=== PATIENT | male | born 1950 | race American Indian/Alaskan Native ===

== ENCOUNTER 2017-10-29 10:02 | Day surgery (SDC) | payer OTHER, MEDICARE ==
[~2017-10-29 10:02] MED LIST: WATER FOR IRRIG STERILE IR ONE; XYLOCAINE MPF 2% ONE
--- NOTE | 2017-10-29 10:05 | Short Stay Summary ---
Short Stay Documentation Date of service: 10/29/17 Narrative H&P: 67 year old with diagnosis of cirrhosis presenting for EGD to assess for varices. - History Principal diagnosis: cirrhosis rule out varices H&P: obtained from office Past Medical History: anemia, cancer (prostate, suspected renal cell carcinoma, LLL lung mass), hypertension, liver disease (alcoholic cirrhosis), other (colon polyps, post-irradiation rectal ulcer with hemorrhage) Past Surgical History: Other (prostate, hemorrhoids) Social history: smoking, alcohol abuse - Allergies and Medications Current Medications: Allergies No Known Allergies Allergy (Verified 08/08/14 03:56) Home Medications Medication Instructions Recorded Confirmed Last Taken Type Atenolol [Tenormin] 25 mg PO DAILY 08/08/14 08/08/14 08/07/14 History Folic Acid [Folvite] 1 mg PO DAILY 08/08/14 08/08/14 08/07/14 History Gemfibrozil [Lopid] 600 mg PO BID 08/08/14 08/08/14 08/07/14 History Omeprazole [PriLOSEC] 40 mg PO DAILY 08/08/14 08/08/14 08/07/14 History Sertraline [Zoloft] 100 mg PO DAILY 08/08/14 08/08/14 08/07/14 History Thiamine [Vitamin B-1] 100 mg PO DAILY 08/08/14 08/08/14 08/07/14 History amLODIPine [Norvasc] 10 mg PO DAILY 08/08/14 08/08/14 08/07/14 History - Hospital course Hospital course: Uneventful EGD with biopsy. - Disposition Condition at discharge: Good Disposition: [id number] TO HOME OR SELFCARE - Discharge Diagnoses (1) Alcoholic cirrhosis Status: Acute (2) Esophageal varices in alcoholic cirrhosis Status: Acute (3) Portal hypertensive gastropathy Status: Acute (4) Duodenitis Status: Acute Short Stay Discharge Plan Activity: other (no driving today) Diet: other (may resume usual diet) Additional Instructions: Patient to call for biopsy results in 2 weeks if we have not contacted him by then. Continue propranolol. Continue omeprazole. Strong recommendation to stop using all alcoholic beverages. Office follow up in 3 months. Follow up with: IFTIKHAR ARANDA MD [Primary Care Provider] - 7 Days
--- NOTE | 2017-10-29 10:35 | Anesthesia Consultation ---
Anesthesia Consult and Med Hx Date of service: 10/29/17 - Airway Anesthetic Teeth Evaluation: Dentures (upper), Partials (lower) ROM Head & Neck: Adequate Mental/Hyoid Distance: Adequate Mallampati Class: Class II - Pre-Operative Health Status ASA Pre-Surgery Classification: ASA3 Proposed Anesthetic Plan: MAC - Pulmonary Hx Smoking: Yes (1/2 p/day x 35 years) Hx Asthma: No COPD: No Hx Pneumonia: No (LLL lung mass) - Cardiovascular System Hx Hypertension: Yes Hx Angina: No (high cholesterol) - Central Nervous System Hx Psychiatric Problems: No - Endocrine Hx End Stage Renal Disease: No Hx Cirrhosis: Yes Hx Liver Disease: Yes (enlarged liver) - Hematic Hx Anemia: Yes - Other Systems Hx Alcohol Use: Yes (alcoholic cirrosis) Hx Cancer: Yes (prostate CA, suspested renal cell carcinoma, LLL lung mass)
--- NOTE | 2017-10-29 10:35 | Anesthesia Day of Surgery ---
Anesthesia Day of Surgery - Day of Surgery Patient Examined: Yes Patient H&P Reviewed: Yes Patient is NPO: Yes Beta Blockers: Yes
[2017-10-29] MEDS ORDERED: DIPRIVAN 10 MG/ML IV ONE ×2 (10:45→10:49)
[2017-10-29] MEDS ORDERED: NACL 0.9% 1000 ML 1,000 ML IV SCH (11:00)
--- NOTE | 2017-10-29 11:11 | Operative Report ---
Operative Report Operative Report: Date of procedure: 10/29/2017 Preprocedure diagnosis: Cirrhosis, rule out varices Post procedure diagnosis: Small caliber esophageal varices, portal hypertensive gastropathy, erosive duodenitis Procedure name(s): Esophagogastroduodenoscopy with biopsy Surgeon: Bruce Keene MD Anesthesia: Monitored anesthesia care EBL: Less than 1 mL Procedure: The indications, techniques, potential complications and alternatives , had been discussed in full detail prior to the date of the exam, and once again on the day of the exam. Questions were encouraged and answered, and consent was thereby obtained. The patient was placed in the left lateral decubitus position, and was medicated by anesthesia services. See the anesthesia records for details. The tip of a Power [employer]ure video panendoscope was passed easily through the pharynx and into the esophagus. Esophageal veins were prominent, consistent with minimal esophageal varices which essentially flattened upon air insufflation. There were no stigmata of bleeding. The endoscope was advanced into the stomach and air was insufflated. The stomach distended well. The pylorus was patent and there was no retained gastric content. There were mucosal changes consistent with portal hypertensive gastropathy but no stigmata of bleeding. The instrument was advanced into the third portion of the duodenum. Erosive duodenitis was present in the bulb and in the immediate post bulbar duodenum but no kaitlyn ulceration or stigmata of bleeding. The instrument was withdrawn back into the stomach and retroflexed. No additional pathology was seen involving the lesser curvature, fundus or cardia. A single biopsy was obtained from the antrum for Helicobacter pylori. There was no significant bleeding. The endoscope was then withdrawn, with careful repeat examination of the stomach , esophagogastric junction and entire length of the esophagus. There were no additional findings. The procedure was very well tolerated. As then monitored in the recovery area of the GI lab to ensure stability prior to was release. See the outpatient record for details regarding instructions to patient, medications and plans for follow-up. Final diagnosis: 1. Erosive duodenitis 2. Portal hypertensive gastropathy 3. Minimal caliber esophageal varices, banding not required Bruce Keene M.D. Dictated 10/29/2017 at 11:07 AM
[2017-10-29 11:42] VITALS: BP 120/69
--- NOTE | 2017-10-29 14:10 | Post Anesthesia Evaluation ---
- Post Anesthesia Evaluation Patient Participated: Yes Airway Patent: Yes Stable Respiratory Function: Yes Nausea/Vomiting: No Temp > 96.8F: Yes Pain Manageable: Yes Adequeate Hydration: Yes Anesthesia Complications: No
== END 2017-10-29 11:45 | disposition home or self-care (01) ==
LOC: GIO 10:02
PROVIDERS: ATTEND Internal Medicine Gastroenterology
DX: I85.00 Esophageal varices without bleeding (principal); K70.30 Alcoholic cirrhosis of liver without ascites; K76.6 Portal hypertension; K31.89 Other diseases of stomach and duodenum; K29.80 Duodenitis without bleeding; I10 Essential (primary) hypertension; E78.00 Pure hypercholesterolemia, unspecified; F17.200 Nicotine dependence, unspecified, uncomplicated; Z86.010 Personal history of colon polyps; Z85.46 Personal history of malignant neoplasm of prostate
CPT/HCPCS: 43239; 88305; 88342; J2704

== ENCOUNTER 2019-01-12 22:13 | Inpatient (IN) | payer MEDICARE, OTHER ==
[2019-01-12 23:13] LABS: INR 1.46 (0.87-1.13)
[2019-01-12 23:14] LABS: Partial Thromboplastin Time 41.2 Sec. (24.2-36.6)
--- NOTE | 2019-01-12 23:17 | Emergency Department Report ---
ED GI Bleed HPI - General Chief complaint: GI Bleed Stated complaint: RECTAL BLEEDING Time Seen by Provider: 01/12/19 22:40 Source: patient, EMS Mode of arrival: Stretcher Limitations: Physical Limitation - History of Present Illness Initial comments: 68-year-old male with hx of alcoholic cirrhosis presents to ED with complaint of rectal bleeding 3 days. Patient reports bright red blood per rectum. Denies abdominal pain, nausea, vomiting. Patient states this has happened before and he has required blood transfusions in the past. Patient reports tobacco and alcohol use. States his alcohol use is daily, usually consists of an "extra large" six-pack of beer daily. MD complaint: gross hematochezia -: days(s) (3) Quality: painless Consistency: constant Improves with: none Worsens with: bowel movement Context: history of GI bleed, alcohol abuse Associated Symptoms: denies: abdominal pain, nausea, vomiting, fever/chills - Related Data Home Medications Medication Instructions Recorded Confirmed Last Taken Folic Acid [Folvite] 1 mg PO DAILY 08/08/14 01/13/19 08/07/14 Gemfibrozil [Lopid] 600 mg PO BID 08/08/14 10/29/17 08/07/14 Sertraline [Zoloft] 100 mg PO DAILY 08/08/14 01/13/19 08/07/14 Thiamine [Vitamin B-1] 100 mg PO DAILY 08/08/14 01/13/19 08/07/14 amLODIPine [Norvasc] 10 mg PO DAILY 08/08/14 01/13/19 10/29/17 Famotidine [Pepcid] 20 mg PO BID 01/13/19 01/13/19 Unknown Magnesium Oxide 420 mg PO BID 01/13/19 01/13/19 Unknown Nicotine [Habitrol] 21 mg TD DAILY 01/13/19 01/13/19 Unknown Potassium Chloride [K-Dur] 10 meq PO QDAY 01/13/19 01/13/19 Unknown traZODone [Desyrel] 50 mg PO QHS 01/13/19 01/13/19 Unknown Allergies Allergy/AdvReac Type Severity Reaction Status Date / Time No Known Allergies Allergy Verified 08/08/14 03:56 ED Review of Systems ROS: Stated complaint: RECTAL BLEEDING Other details as noted in HPI Comment: All other systems reviewed and negative Constitutional: denies: chills, fever Respiratory: denies: shortness of breath Cardiovascular: denies: chest pain Gastrointestinal: hematochezia. denies: abdominal pain, nausea, vomiting ED Past Medical Hx - Past Medical History Previous Medical History?: Yes Hx Hypertension: Yes Hx Congestive Heart Failure: No Hx Diabetes: No Hx GERD: Yes Hx Liver Disease: Yes (enlarged liver) Hx Arthritis: Yes (LEFT KNEE) Hx Asthma: No Hx COPD: No Hx HIV: No - Surgical History Past Surgical History?: Yes Additional Surgical History: prostate surgery at age 51 - Social History Smoking Status: Current Every Day Smoker Substance Use Type: Alcohol - Medications Home Medications: Home Medications Medication Instructions Recorded Confirmed Last Taken Type Folic Acid [Folvite] 1 mg PO DAILY 08/08/14 01/13/19 08/07/14 History Gemfibrozil [Lopid] 600 mg PO BID 08/08/14 10/29/17 08/07/14 History Sertraline [Zoloft] 100 mg PO DAILY 08/08/14 01/13/19 08/07/14 History Thiamine [Vitamin B-1] 100 mg PO DAILY 08/08/14 01/13/19 08/07/14 History amLODIPine [Norvasc] 10 mg PO DAILY 08/08/14 01/13/19 10/29/17 History Famotidine [Pepcid] 20 mg PO BID 01/13/19 01/13/19 Unknown History Magnesium Oxide 420 mg PO BID 01/13/19 01/13/19 Unknown History Nicotine [Habitrol] 21 mg TD DAILY 01/13/19 01/13/19 Unknown History Potassium Chloride [K-Dur] 10 meq PO QDAY 01/13/19 01/13/19 Unknown History traZODone [Desyrel] 50 mg PO QHS 01/13/19 01/13/19 Unknown History ED Physical Exam - General Limitations: Physical Limitation General appearance: alert - Head Head exam: Present: atraumatic, normocephalic - Eye Eye exam: Present: normal appearance - ENT ENT exam: Present: mucous membranes moist - Neck Neck exam: Present: normal inspection - Respiratory Respiratory exam: Present: normal lung sounds bilaterally. Absent: respiratory distress - Cardiovascular Cardiovascular Exam: Present: regular rate, normal rhythm - GI/Abdominal GI/Abdominal exam: Present: soft. Absent: distended, tenderness - Rectal Rectal exam: Present: heme (+) stool, hemorrhoids - Extremities Exam Extremities exam: Present: normal inspection - Back Exam Back exam: Present: normal inspection - Neurological Exam Neurological exam: Present: alert, oriented X3 - Psychiatric Psychiatric exam: Present: normal affect, normal mood - Skin Skin exam: Present: warm, dry, intact, normal color ED Course Vital Signs 01/12/19 01/13/19 01/13/19 22:34 00:00 00:30 Temperature 98.6 F Pulse Rate 88 84 Respiratory 20 20 20 Rate Blood Pressure 126/63 Blood Pressure 143/74 [Right] O2 Sat by Pulse 98 99 98 Oximetry 01/13/19 01:00 Temperature Pulse Rate 88 Respiratory 20 Rate Blood Pressure Blood Pressure 121/61 [Right] O2 Sat by Pulse 99 Oximetry - Consultations Consultation #1: 01/12/19 23:45 Spoke w/ Dr Null, GI. Will scope in the AM. Wants rocephin 1g daily for SBP prophylaxis. ED Medical Decision Making - Lab Data Result diagrams: 01/13/19 00:46 01/12/19 22:50 - Medical Decision Making 68-year-old male with rectal bleeding. Vital signs stable. Patient anemic with hemoglobin of 4.9. Blood transfusion ordered. GI contacted, will scope the patient tomorrow. I spoke with hospitalist, Dr. Cabrera, for admission - Differential Diagnosis diverticulosis, AV malformation, hemorrhoids Critical Care Time: Yes Critical care time in (mins) excluding proc time.: 35 Critical care attestation.: If time is entered above; I have spent that time in minutes in the direct care of this critically ill patient, excluding procedure time. Critical Care Time: 35 minutes ED Disposition Clinical Impression: Lower GI bleed, Anemia requiring transfusions Disposition: OP ADMIT IP TO THIS HOSP Is pt being admited?: Yes Condition: Stable Time of Disposition: 23:50
[2019-01-12 23:21] LABS: Basophils % (Auto) 0.5 % (0.0-1.8); Eosinophils % (Auto) 0.8 % (0.0-4.3); Lymphocytes # (Auto) 0.7 K/mm3 (1.2-5.4); Lymphocytes % (Auto) 15.1 % (13.4-35.0); Mean Corpuscular HGB Conc 31 % (32-34); Mean Corpuscular Volume 80 fl (84-94); Monocytes # (Auto) 0.5 K/mm3 (0.0-0.8); Monocytes % (Auto) 10.8 % (0.0-7.3); Platelet Count 104 K/mm3 (140-440); Red Blood Count 1.93 M/mm3 (3.65-5.03)
[2019-01-12 23:24] LABS: Hematocrit 15.5 % (35.5-45.6); Hemoglobin 4.9 gm/dl (11.8-15.2)
[2019-01-12 23:28] LABS: Alanine Aminotransferase 23 units/L (7-56); BUN/Creatinine Ratio 10; Blood Urea Nitrogen 7 mg/dL (9-20); Calcium 8.4 mg/dL (8.4-10.2); Hemolysis Index 28
[2019-01-12] MEDS ORDERED: NACL 0.9% 500 ML 500 ML IV ONE (23:28)
[2019-01-12] MEDS ORDERED: ROCEPHIN/NS 1 GM/50 ML 1 GM/50 ML BAG IV ONE (23:46)
[2019-01-13] MEDS ORDERED: SODIUM CHLORIDE FLUSH SYRINGE 10 ML IV PRN (00:17)
[2019-01-13] MEDS ORDERED: TYLENOL PO PRN (00:17)
[2019-01-13] MEDS ORDERED: ZOFRAN IV PRN (00:17)
--- NOTE | 2019-01-13 00:39 | History and Physical Report ---
History of Present Illness Date of examination: 01/13/19 History of present illness: 68 year old man with history of hypertension, hemorrhoids, prostate cancer comes to the emergency room complaining of passing bright red blood per rectum since Sunday when he wiped initially but got more profuse Review of systems Constitutional: no weight loss, chills, fever Ears, eyes, nose, mouth and throat: no nasal congestion, no nasal discharge, no sinus pressure, no vision change, no red eye. Neck: No neck pain or rigidity. Cardiovascular: no palpitations, chest pain Respiratory: no cough, shortness of breath Gastrointestinal: no abdominal pain Genitourinary : no frequency , no hematuria Musculoskeletal: no joint swelling or muscle ache Integumentary: no rash, no pruritis Neurological: no parathesias, no focal weakness Endocrine: no cold or heat intolerance, no polyuria or polydipsia Hematologic/Lymphatic: no easy bruising, no easy bleeding, no gland swelling Allergic/Immunologic: no urticaria, no angioedema. PAST MEDICAL HISTORY: Hypertension, prostate cancer PAST SURGICAL HISTORY: prostatectomy, hemorrhoidectomy SOCIAL HISTORY: Denies alcohol, drugs, tobacco FAMILY HISTORY: Hypertension Medications and Allergies Allergies Allergy/AdvReac Type Severity Reaction Status Date / Time No Known Allergies Allergy Verified 08/08/14 03:56 Home Medications Medication Instructions Recorded Confirmed Last Taken Type Folic Acid [Folvite] 1 mg PO DAILY 08/08/14 01/13/19 08/07/14 History Sertraline [Zoloft] 100 mg PO DAILY 08/08/14 01/13/19 08/07/14 History Thiamine [Vitamin B-1] 100 mg PO DAILY 08/08/14 01/13/19 08/07/14 History amLODIPine [Norvasc] 10 mg PO DAILY 08/08/14 01/13/19 10/29/17 History Famotidine [Pepcid] 20 mg PO BID 01/13/19 01/13/19 Unknown History Magnesium Oxide 420 mg PO BID 01/13/19 01/13/19 Unknown History Multivit-Min/Iron Fum/Folic AC 1 each PO DAILY 01/13/19 01/13/19 Unknown History [Rutqw-[id number]-Rvocixmb Tablet] Nicotine [Habitrol] 21 mg TD DAILY 01/13/19 01/13/19 Unknown History Potassium Chloride [K-Dur] 10 meq PO QDAY 01/13/19 01/13/19 Unknown History Urea [Urea 20% CREAM] 85 gm TP BID 01/13/19 01/13/19 Unknown History traZODone [Desyrel] 50 mg PO QHS 01/13/19 01/13/19 Unknown History Active Meds: Active Medications Acetaminophen (Tylenol) 650 mg PO Q4H PRN PRN Reason: Pain MILD(1-3)/Fever >100.5/[place]CMILLAN Sodium Chloride (Nacl 0.45% 1000 Ml) 1,000 mls @ 100 mls/hr IV DIRECT CARMEL Ondansetron HCl (Zofran) 4 mg IV Q8H PRN PRN Reason: Nausea And Vomiting Sodium Chloride (Sodium Chloride Flush Syringe 10 Ml) 10 ml IV BID CARMEL Sodium Chloride (Sodium Chloride Flush Syringe 10 Ml) 10 ml IV PRN PRN PRN Reason: LINE FLUSH Exam - Physical Exam Narrative exam: General Apperance: The patient lying in bed, breathing comfortable HEENT: Normocephalic, atraumatic. Pupils equally round and reactive to light, EOMI, no sclericterus or JVD or thyromegaly or nodule. , no carotid bruit, mucous membranes moist, no exudate or erythema Heart: S1-S2, regular is rhythm Lungs: Clear to auscultation bilaterally, breathing comfortable Abdomen: Positive bowel sounds, soft, nontender, nondistended, no organomegaly Extremities: No edema cyanosis clubbing Skin: no rash, nodule, warm and dry Neuro: cranial nerves 2-12 intact, speech is fluent, motor/sensory intact - Constitutional Vitals: Temp Pulse Resp BP Pulse Ox 98.6 F 88 20 126/63 98 01/12/19 22:34 01/12/19 22:34 01/12/19 22:34 01/12/19 22:34 01/12/19 22:34 Results - Labs CBC & Chem 7: 01/19/19 06:51 01/19/19 06:51 Labs: Abnormal lab results 01/12/19 01/12/19 01/12/19 Range/Units 22:50 22:50 22:50 RBC 1.93 L (3.65-5.03) M/mm3 Hgb 4.9 L* (11.8-15.2) gm/dl Hct 15.5 L* (35.5-45.6) % MCV 80 L (84-94) fl MCH 25 L (28-32) pg MCHC 31 L (32-34) % RDW 20.0 H (13.2-15.2) % Plt Count 104 L (140-440) K/mm3 Wetzel % (Auto) 10.8 H (0.0-7.3) % Lymph # 0.7 L (1.2-5.4) K/mm3 Seg Neutrophils % 72.8 H (40.0-70.0) % PT 17.4 H (12.2-14.9) Sec. INR 1.46 H (0.87-1.13) APTT 41.2 H (24.2-36.6) Sec. Carbon Dioxide 18 L (22-30) mmol/L BUN 7 L (9-20) mg/dL Creatinine 0.7 L (0.8-1.5) mg/dL AST 102 H (5-40) units/L Albumin 3.0 L (3.9-5) g/dL Assessment and Plan Assessment Lower GI BLEED Blood loss Anemia Alcohol Abuse Plan Admit to medicine Transfuse blood, monitor hemoglobin Consult GI, start CIWA protocol DVT protocol
[2019-01-13 01:34] LABS: Hemoglobin 5.1 gm/dl (11.8-15.2)
--- NOTE | 2019-01-13 10:45 | Gastroenterology Consultation ---
<VISHNU BROWN - Last Filed: 01/13/19 12:07> History of Present Illness - Reason for Consult Consult date: 01/13/19 GI bleed Requesting physician: SAMARIA HERNANDEZ - History of Present Illness Patient is a 68 y/o male with PMH of alcoholic cirrhosis, HTN, and prostate cancer (s/p prostatectomy/radiation) who presented to ED with c/o rectal bleeding to which GI has been consulted. Patient is previously know to our service with last encounter being in 2018 for cirrhosis. He underwent an abd U/S (findings c/w cirrhosis but no lesions) and EGD at that time by Dr. Keene that showed small caliber esophageal varices, portal hypertension gastropathy, and erosive duodentitis but he has been following up with [facility] since that time for further care. This morning patient was resting in bed w/o acute distress. Reports intermittent BRBPR since receiving treatment for prostate in ~1999 but states it became significantly worse last Sunday with an increased amount of bright red blood with wiping and clots. Last episode of bleeding was overnight with no active signs of bleeding so far this am. No hematemesis or melena. Denies fever, CP, SOB, wt loss, abd pain, N/V, diarrhea, or constipation. Not taking any blood thinning medications at home. No hx of PUD. Continues to actively drink alcohol with on average a 6 pack of beer a day if not more. Patient reports having an EGD earlier this year at the [facility] and a colonoscopy within the past couple of years with results unknown (believes he had colon polyps?/records unavailable). No known Fhx of GI cancers. Past History Past Medical History: other (as per HPI) Past Surgical History: Other ( prostatectomy) Social history: smoking, alcohol abuse Family history: hypertension Medications and Allergies Allergies Allergy/AdvReac Type Severity Reaction Status Date / Time No Known Allergies Allergy Verified 08/08/14 03:56 Home Medications Medication Instructions Recorded Confirmed Last Taken Type Folic Acid [Folvite] 1 mg PO DAILY 08/08/14 01/13/19 08/07/14 History Sertraline [Zoloft] 100 mg PO DAILY 08/08/14 01/13/19 08/07/14 History Thiamine [Vitamin B-1] 100 mg PO DAILY 08/08/14 01/13/19 08/07/14 History amLODIPine [Norvasc] 10 mg PO DAILY 08/08/14 01/13/19 10/29/17 History Famotidine [Pepcid] 20 mg PO BID 01/13/19 01/13/19 Unknown History Magnesium Oxide 420 mg PO BID 01/13/19 01/13/19 Unknown History Multivit-Min/Iron Fum/Folic AC 1 each PO DAILY 01/13/19 01/13/19 Unknown History [Vuebi-Nttrjld-Xwywuyoo Tablet] Nicotine [Habitrol] 21 mg TD DAILY 01/13/19 01/13/19 Unknown History Potassium Chloride [K-Dur] 10 meq PO QDAY 01/13/19 01/13/19 Unknown History Urea [Urea 20% CREAM] 85 gm TP BID 01/13/19 01/13/19 Unknown History traZODone [Desyrel] 50 mg PO QHS 01/13/19 01/13/19 Unknown History Active Meds: Active Medications Acetaminophen (Tylenol) 650 mg PO Q4H PRN PRN Reason: Pain MILD(1-3)/Fever >100.5/MCMILLAN Sodium Chloride (Nacl 0.45% 1000 Ml) 1,000 mls @ 100 mls/hr IV DIRECT CARMEL Lorazepam (Ativan) 4 mg IV Q1HR PRN PRN Reason: CIWA-Ar 16-25 Lorazepam (Ativan) 2 mg IV Q1HR PRN PRN Reason: CIWA-Ar 8-15 Ondansetron HCl (Zofran) 4 mg IV Q8H PRN PRN Reason: Nausea And Vomiting Polyethylene Glycol/Electrolytes (Golytely) 4,000 ml PO ONCE ONE Stop: 01/13/19 18:01 Sodium Chloride (Sodium Chloride Flush Syringe 10 Ml) 10 ml IV BID CARMEL Sodium Chloride (Sodium Chloride Flush Syringe 10 Ml) 10 ml IV PRN PRN PRN Reason: LINE FLUSH medications reviewed/updated as required Review of Systems - Review of Systems All systems: negative Gastrointestinal: hematochezia Exam - Constitutional Vital Signs: Temp Pulse Resp BP Pulse Ox 98.1 F 92 H 18 115/59 99 01/13/19 10:35 01/13/19 10:35 01/13/19 10:35 01/13/19 10:35 01/13/19 10:35 General appearance: no acute distress - EENT Eyes: PERRL, EOM intact ENT: hearing intact - Respiratory Respiratory: bilateral: CTA - Cardiovascular Rhythm: regular - Gastrointestinal General gastrointestinal: Present: soft, non-tender, non-distended, normal bowel sounds - Neurologic Neurological: alert and oriented x3 - Labs CBC & Chem 7: 01/13/19 00:46 01/12/19 22:50 Lab Results: Laboratory Results - last 24 hr 01/12/19 01/12/19 01/12/19 22:50 22:50 22:50 WBC 4.7 RBC 1.93 L Hgb 4.9 L* Hct 15.5 L* MCV 80 L MCH 25 L MCHC 31 L RDW 20.0 H Plt Count 104 L Lymph % (Auto) 15.1 [place] % (Auto) 10.8 H Eos % (Auto) 0.8 Baso % (Auto) 0.5 Lymph # 0.7 L [place] # 0.5 Eos # 0.0 Baso # 0.0 Seg Neutrophils % 72.8 H Seg Neutrophils # 3.4 PT 17.4 H INR 1.46 H APTT 41.2 H Sodium 139 Potassium 3.9 Chloride 105.1 Carbon Dioxide 18 L Anion Gap 20 BUN 7 L Creatinine 0.7 L Estimated GFR > 60 BUN/Creatinine Ratio 10 Glucose 95 Calcium 8.4 Total Bilirubin 0.60 AST 102 H ALT 23 Alkaline Phosphatase 97 Total Protein 8.1 Albumin 3.0 L Albumin/Globulin Ratio 0.6 Blood Type Antibody Screen Crossmatch 01/12/19 01/13/19 22:50 00:46 WBC RBC Hgb 5.1 L* Hct 16.0 L* MCV MCH MCHC RDW Plt Count Lymph % (Auto) [place] % (Auto) Eos % (Auto) Baso % (Auto) Lymph # [place] # Eos # Baso # Seg Neutrophils % Seg Neutrophils # PT INR APTT Sodium Potassium Chloride Carbon Dioxide Anion Gap BUN Creatinine Estimated GFR BUN/Creatinine Ratio Glucose Calcium Total Bilirubin AST ALT Alkaline Phosphatase Total Protein Albumin Albumin/Globulin Ratio Blood Type O NEGATIVE Antibody Screen Negative Crossmatch See Detail Assessment and Plan 1.GI bleed/hematochezia 2.H/o alcoholic cirrhosis 3.H/o prostate cancer (s/p surgery/radiation) -plt 104, INR 1.46 -LFTs- [place] 0.60, AST 102, ALT 23, alk phos 97 -BUN WNL -H/H 5.1/16.0- receiving transfusion PRBCs -continue to monitor H/H and transfuse as needed -hold blood thinning medications -currently HD stable -patient reports intermittent BRBPR since prostate tx in ~1999 but reports a significant worsening of rectal bleeding with clots noted with wiping and in toilet last Sunday. No hematemesis, melena, or abd pain. -EGD [address] Keene that showed small caliber esophageal varices, portal hypertension gastropathy, and erosive duodentitis -Last EGD this year per patient at [facility] with unknown results (records unavailable) -last colonoscopy within last couple of years at [facility] with possible colon polyps (records unavailable) -etiology-most likely lower source (however upper source not completely excluded given history) -will schedule for colonoscopy +/- EGD tomorrow -start on PPI -start on prophylactic antibiotics (Ceftriaxone 1Gm daily) -okay for clear liquids today then NPO after MN -INR in am -continue supportive care -alcohol cessations discussed/encouraged with patient-monitor for signs of withdrawal -will follow <HIEU DEJESUS - Last Filed: 01/13/19 23:17> Medications and Allergies Active Meds: Active Medications Acetaminophen (Tylenol) 650 mg PO Q4H PRN PRN Reason: Pain MILD(1-3)/Fever >100.5/MCMILLAN Sodium Chloride (Nacl 0.45% 1000 Ml) 1,000 mls @ 100 mls/hr IV DIRECT CARMEL Last Admin: 01/13/19 18:42 Dose: 100 mls/hr Documented by: Ceftriaxone Sodium (Rocephin/Ns 1 Gm/50 Ml) 1 gm in 50 mls @ 100 mls/hr IV Q24HR CARMEL; Protocol Last Admin: 01/13/19 14:22 Dose: 100 mls/hr Documented by: Sodium Chloride (Nacl 0.9% 500 Ml) 500 mls @ 50 mls/hr IV DIRECT CARMEL Stop: 01/14/19 00:59 Last Admin: 01/13/19 14:58 Dose: 50 mls/hr Documented by: Lorazepam (Ativan) 4 mg IV Q1HR PRN PRN Reason: CIWA-Ar 16-25 Lorazepam (Ativan) 2 mg IV Q1HR PRN PRN Reason: CIWA-Ar 8-15 Last Admin: 01/13/19 20:54 Dose: 2 mg Documented by: Ondansetron HCl (Zofran) 4 mg IV Q8H PRN PRN Reason: Nausea And Vomiting Pantoprazole Sodium (Protonix) 40 mg IV BID [facility] Last Admin: 01/13/19 20:59 Dose: 40 mg Documented by: Sodium Chloride (Sodium Chloride Flush Syringe 10 Ml) 10 ml IV BID [facility] Last Admin: 01/13/19 21:22 Dose: Not Given Documented by: Sodium Chloride (Sodium Chloride Flush Syringe 10 Ml) 10 ml IV PRN PRN PRN Reason: LINE FLUSH Exam - Constitutional Vital Signs: Temp Pulse Resp BP Pulse Ox 97.2 F L 85 18 146/77 98 01/13/19 19:38 01/13/19 19:38 01/13/19 22:33 01/13/19 19:38 01/13/19 19:38 - Labs CBC & Chem 7: 01/13/19 21:52 01/13/19 21:52 Lab Results: Laboratory Results - last 24 hr 01/12/19 01/12/19 01/12/19 22:50 22:50 22:50 WBC 4.7 RBC 1.93 L Hgb 4.9 L* Hct 15.5 L* MCV 80 L MCH 25 L MCHC 31 L RDW 20.0 H Plt Count 104 L Lymph % (Auto) 15.1 [place] % (Auto) 10.8 H Eos % (Auto) 0.8 Baso % (Auto) 0.5 Lymph # 0.7 L [place] # 0.5 Eos # 0.0 Baso # 0.0 Seg Neutrophils % 72.8 H Seg Neutrophils # 3.4 Sodium 139 Potassium 3.9 Chloride 105.1 Carbon Dioxide 18 L Anion Gap 20 BUN 7 L Creatinine 0.7 L Estimated GFR > 60 BUN/Creatinine Ratio 10 Glucose 95 Calcium 8.4 Total Bilirubin 0.60 AST 102 H ALT 23 Alkaline Phosphatase 97 Total Protein 8.1 Albumin 3.0 L Albumin/Globulin Ratio 0.6 Blood Type O NEGATIVE Antibody Screen Negative Crossmatch See Detail 01/13/19 01/13/19 01/13/19 00:46 21:52 21:52 WBC 4.4 L RBC 3.00 L Hgb 5.1 L* 8.2 L D Hct 16.0 L* 24.9 L D MCV 83 L MCH 27 L MCHC 33 RDW 18.9 H Plt Count 86 L Lymph % (Auto) 15.2 [place] % (Auto) 11.7 H Eos % (Auto) 1.3 Baso % (Auto) 0.3 Lymph # 0.7 L [place] # 0.5 Eos # 0.1 Baso # 0.0 Seg Neutrophils % 71.5 H Seg Neutrophils # 3.2 Sodium 136 L Potassium 3.5 L Chloride 102.0 Carbon Dioxide 22 Anion Gap 16 BUN 4 L Creatinine 0.5 L Estimated GFR > 60 BUN/Creatinine Ratio 8 Glucose 98 Calcium 8.5 Total Bilirubin AST ALT Alkaline Phosphatase Total Protein Albumin Albumin/Globulin Ratio Blood Type Antibody Screen Crossmatch Assessment and Plan Patient seen and examined. I have reviewed the advanced practitioner's evaluation, assessment, and plan, and agree with them. I note the following additions: patient in NAD on exam, rectal bleeding with no melena and low BUN/Cr ratio, clinically consistent with LGIB, therefore will pursue colonoscopy tomorrow, though will consent patient for an EGD as if the colonoscopy is completely normal will therefore be able to perform simultaneous EGD in the low likelihood it is an UGIB.
--- NOTE | 2019-01-13 11:21 | Progress Note ---
History Interval history: This is a follow-up from an admission earlier this morning. We will continue to plan as outlined in the H&P. I discussed the case with GI who plans to perform Colonoscopy +/- EGD in a.m. Total time 26 minutes with greater than 50% spent on counseling and coordination of care. Hospitalist Physical - Constitutional Vitals: Temp Pulse Resp BP Pulse Ox 98.1 F 92 H 18 115/59 99 01/13/19 10:35 01/13/19 10:35 01/13/19 10:35 01/13/19 10:35 01/13/19 10:35 Results - Labs CBC & Chem 7: 01/13/19 00:46 01/12/19 22:50 Labs: Laboratory Last Values WBC 4.7 K/mm3 (4.5-11.0) 01/12/19 22:50 RBC 1.93 M/mm3 (3.65-5.03) L 01/12/19 22:50 Hgb 5.1 gm/dl (11.8-15.2) L* 01/13/19 00:46 Hct 16.0 % (35.5-45.6) L* 01/13/19 00:46 MCV 80 fl (84-94) L 01/12/19 22:50 MCH 25 pg (28-32) L 01/12/19 22:50 MCHC 31 % (32-34) L 01/12/19 22:50 RDW 20.0 % (13.2-15.2) H 01/12/19 22:50 Plt Count 104 K/mm3 (140-440) L 01/12/19 22:50 Lymph % (Auto) 15.1 % (13.4-35.0) 01/12/19 22:50 [place] % (Auto) 10.8 % (0.0-7.3) H 01/12/19 22:50 Eos % (Auto) 0.8 % (0.0-4.3) 01/12/19 22:50 Baso % (Auto) 0.5 % (0.0-1.8) 01/12/19 22:50 Lymph # 0.7 K/mm3 (1.2-5.4) L 01/12/19 22:50 [place] # 0.5 K/mm3 (0.0-0.8) 01/12/19 22:50 Eos # 0.0 K/mm3 (0.0-0.4) 01/12/19 22:50 Baso # 0.0 K/mm3 (0.0-0.1) 01/12/19 22:50 Seg Neutrophils % 72.8 % (40.0-70.0) H 01/12/19 22:50 Seg Neutrophils # 3.4 K/mm3 (1.8-7.7) 01/12/19 22:50 PT 17.4 Sec. (12.2-14.9) H 01/12/19 22:50 INR 1.46 (0.87-1.13) H 01/12/19 22:50 APTT 41.2 Sec. (24.2-36.6) H 01/12/19 22:50 Sodium 139 mmol/L (137-145) 01/12/19 22:50 Potassium 3.9 mmol/L (3.6-5.0) 01/12/19 22:50 Chloride 105.1 mmol/L (98-107) 01/12/19 22:50 Carbon Dioxide 18 mmol/L (22-30) L 01/12/19 22:50 20 mmol/L 01/12/19 22:50 BUN 7 mg/dL (9-20) L 01/12/19 22:50 0.7 mg/dL (0.8-1.5) L 01/12/19 22:50 Estimated GFR > 60 ml/min 01/12/19 22:50 10 % 01/12/19 22:50 Glucose 95 mg/dL (75-100) 01/12/19 22:50 Calcium 8.4 mg/dL (8.4-10.2) 01/12/19 22:50 0.60 mg/dL (0.1-1.2) 01/12/19 22:50 AST 102 units/L (5-40) H 01/12/19 22:50 ALT 23 units/L (7-56) 01/12/19 22:50 97 units/L (35-129) 01/12/19 22:50 8.1 g/dL (6.3-8.2) 01/12/19 22:50 3.0 g/dL (3.9-5) L 01/12/19 22:50 0.6 % 01/12/19 22:50 Blood Type O NEGATIVE 01/12/19 22:50 Antibody Screen Negative 01/12/19 22:50 Crossmatch See Detail 01/12/19 22:50 Active Medications - Current Medications Current Medications: Generic Name Dose Route Start Last Admin Trade Name Freq PRN Reason Stop Dose Admin Acetaminophen 650 mg 01/13/19 00:17 Tylenol PO Q4H PRN Pain MILD(1-3)/Fever >100.5/MCMILLAN Sodium Chloride 1,000 mls @ 100 mls/hr 01/13/19 01:00 Nacl 0.45% 1000 Ml IV DIRECT CARMEL Lorazepam 4 mg 01/13/19 02:36 Ativan IV Q1HR PRN CIWA-Ar 16-25 Lorazepam 2 mg 01/13/19 02:36 Ativan IV Q1HR PRN CIWA-Ar 8-15 Ondansetron HCl 4 mg 01/13/19 00:17 Zofran IV Q8H PRN Nausea And Vomiting Polyethylene Glycol/Electrolytes 4,000 ml 01/13/19 18:00 Golytely PO 01/13/19 18:01 ONCE ONE Sodium Chloride 10 ml 01/13/19 10:00 Sodium Chloride Flush Syringe 10 Ml IV BID CARMEL Sodium Chloride 10 ml 01/13/19 00:17 Sodium Chloride Flush Syringe 10 Ml IV PRN PRN LINE FLUSH
[2019-01-13] MEDS: PROTONIX IV SCH ×2 (14:13→20:59)
[2019-01-13] MEDS: SODIUM CHLORIDE FLUSH SYRINGE 10 ML IV SCH ×2 (14:14→21:22)
[2019-01-13] MEDS: ROCEPHIN/NS 1 GM/50 ML 1 GM/50 ML BAG IV SCH (14:22)
[2019-01-13] MEDS ORDERED: NACL 0.9% 500 ML 500 ML IV SCH (15:00)
[2019-01-13] MEDS: ATIVAN IV PRN ×3 (17:19→20:54)
[2019-01-13] MEDS ORDERED: GOLYTELY PO ONE (18:00)
[2019-01-13] MEDS: NACL 0.45% 1000 ML 1,000 ML IV SCH (18:42)
[2019-01-13 22:04] LABS: Basophils % (Auto) 0.3 % (0.0-1.8); Eosinophils # (Auto) 0.1 K/mm3 (0.0-0.4); Eosinophils % (Auto) 1.3 % (0.0-4.3); Hematocrit 24.9 % (35.5-45.6); Hemoglobin 8.2 gm/dl (11.8-15.2); Lymphocytes # (Auto) 0.7 K/mm3 (1.2-5.4); Lymphocytes % (Auto) 15.2 % (13.4-35.0); Mean Corpuscular HGB Conc 33 % (32-34); Mean Corpuscular Volume 83 fl (84-94); Monocytes # (Auto) 0.5 K/mm3 (0.0-0.8); Monocytes % (Auto) 11.7 % (0.0-7.3); Red Cell Distribution Width 18.9 % (13.2-15.2)
[2019-01-13 22:15] LABS: Platelet Count 86 K/mm3 (140-440)
[2019-01-13 22:18] LABS: BUN/Creatinine Ratio 8; Blood Urea Nitrogen 4 mg/dL (9-20); Calcium 8.5 mg/dL (8.4-10.2); Hemolysis Index 1
[2019-01-14] MEDS: ATIVAN IV PRN ×4 (01:06→03:10)
[2019-01-14] MEDS: NACL 0.45% 1000 ML 1,000 ML IV SCH (05:05)
[2019-01-14 06:10] LABS: Hematocrit 20.5 % (35.5-45.6); Hemoglobin 6.6 gm/dl (11.8-15.2)
[2019-01-14 06:18] LABS: INR 1.66 (0.87-1.13)
--- NOTE | 2019-01-14 07:34 | Anesthesia Day of Surgery ---
Anesthesia Day of Surgery - Day of Surgery Patient Examined: Yes Patient H&P Reviewed: Yes Patient is NPO: Yes
--- NOTE | 2019-01-14 07:34 | Anesthesia Consultation ---
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) - Cardiovascular System Hx Hypertension: Yes Hx Angina: No (high cholesterol) - Central Nervous System Hx Psychiatric Problems: No - Endocrine Hx End Stage Renal Disease: No Hx Cirrhosis: Yes Hx Liver Disease: Yes (enlarged liver) - Hematic Hx Anemia: Yes - Other Systems Hx Alcohol Use: Yes (DAILY) Hx Cancer: Yes (PROSTATE) <SULTANA ESPARZA - Last Filed: 01/15/19 08:34> Anesthesia Consult and Med Hx - Airway Anesthetic Teeth Evaluation: Poor, Dentures (full upper, partial lower) Mallampati Class: Class III Intubation Access Assessment: Possibly Difficult - Pulmonary Exam CTA: Yes (transmitted upper airway sounds) - Cardiac Exam Cardiac Exam: RRR - Pre-Operative Health Status ASA Pre-Surgery Classification: ASA4
[2019-01-14] MEDS ORDERED: NACL 0.9% 500 ML 500 ML IV NR (07:39)
--- NOTE | 2019-01-14 07:54 | Progress Note ---
Assessment and Plan Assessment and plan: --Lower GI bleeding: Nothing by mouth, GI evaluated the patient Scheduled for Endoscopy today --Acute Blood loss Anemia: s/p 3 units PRBC transfusion Hb 4.9-8.2-6.6, closely monitor H&H Transfuse 2 units PRBC today --Hypokalemia replace with Kcl --Hypernatremia; free water restriction Normal saline, monitor electrolytes --Alcoholic liver disease/ Cirrhosis Liver: Supportive care, GI following --Coagulopathy: due to cirrhosis: Vit K as needed Monitor PT/INR --Chronic alcohol use; counseling Advised to quit alcohol intake --Alcohol withdrawal: Continue CIWA protocols Patient advised to seek alcohol detox/alcohol rehab Upon discharge --DVT prophylaxis:SCD Monitor closely and adjust management as needed Plan of care reviewed with the patient and his nurse History Interval history: Patient seen and examined medical records reviewed Admitted with rectal bleeding and acute blood loss anemia Received 3 units of PRBC, patient continues to have intermittent bleeding Hemoglobin dropped to 6.6 Patient is scheduled for endoscopy today Feels better no new complaints Vitals reviewed Hospitalist Physical - Constitutional Vitals: Temp Pulse Resp BP Pulse Ox 99.3 F 118 H 20 107/56 97 01/14/19 04:21 01/14/19 04:21 01/14/19 04:21 01/14/19 04:21 01/14/19 04:21 General appearance: Present: no acute distress, well-nourished, other (confused at times) - EENT Eyes: Present: PERRL, EOM intact - Neck Neck: Present: supple, normal ROM - Respiratory Respiratory effort: normal Respiratory: bilateral: diminished, negative: rales, rhonchi, wheezing - Cardiovascular Rhythm: regular Heart Sounds: Present: S1 & S2 - Extremities Extremities: no ischemia, No edema - Abdominal General gastrointestinal: soft, non-tender, non-distended, normal bowel sounds - Integumentary Integumentary: Present: clear, warm - Psychiatric Psychiatric: appropriate mood/affect, cooperative, other (confused at times) - Neurologic Neurologic: moves all extremities Results - Labs CBC & Chem 7: 01/14/19 05:42 01/13/19 21:52 Labs: Laboratory Last Values WBC 4.4 K/mm3 (4.5-11.0) L 01/13/19 21:52 RBC 3.00 M/mm3 (3.65-5.03) L 01/13/19 21:52 Hgb 6.6 gm/dl (11.8-15.2) L 01/14/19 05:42 Hct 20.5 % (35.5-45.6) L 01/14/19 05:42 MCV 83 fl (84-94) L 01/13/19 21:52 MCH 27 pg (28-32) L 01/13/19 21:52 MCHC 33 % (32-34) 01/13/19 21:52 RDW 18.9 % (13.2-15.2) H 01/13/19 21:52 Plt Count 86 K/mm3 (140-440) L 01/13/19 21:52 Lymph % (Auto) 15.2 % (13.4-35.0) 01/13/19 21:52 [place] % (Auto) 11.7 % (0.0-7.3) H 01/13/19 21:52 Eos % (Auto) 1.3 % (0.0-4.3) 01/13/19 21:52 Baso % (Auto) 0.3 % (0.0-1.8) 01/13/19 21:52 Lymph # 0.7 K/mm3 (1.2-5.4) L 01/13/19 21:52 [place] # 0.5 K/mm3 (0.0-0.8) 01/13/19 21:52 Eos # 0.1 K/mm3 (0.0-0.4) 01/13/19 21:52 Baso # 0.0 K/mm3 (0.0-0.1) 01/13/19 21:52 Seg Neutrophils % 71.5 % (40.0-70.0) H 01/13/19 21:52 Seg Neutrophils # 3.2 K/mm3 (1.8-7.7) 01/13/19 21:52 PT 19.2 Sec. (12.2-14.9) H 01/14/19 05:42 INR 1.66 (0.87-1.13) H 01/14/19 05:42 APTT 41.2 Sec. (24.2-36.6) H 01/12/19 22:50 Sodium 136 mmol/L (137-145) L 01/13/19 21:52 Potassium 3.5 mmol/L (3.6-5.0) L 01/13/19 21:52 Chloride 102.0 mmol/L (98-107) 01/13/19 21:52 Carbon Dioxide 22 mmol/L (22-30) 01/13/19 21:52 16 mmol/L 01/13/19 21:52 BUN 4 mg/dL (9-20) L 01/13/19 21:52 0.5 mg/dL (0.8-1.5) L 01/13/19 21:52 Estimated GFR > 60 ml/min 01/13/19 21:52 8 % 01/13/19 21:52 Glucose 98 mg/dL (75-100) 01/13/19 21:52 Calcium 8.5 mg/dL (8.4-10.2) 01/13/19 21:52 0.60 mg/dL (0.1-1.2) 01/12/19 22:50 AST 102 units/L (5-40) H 01/12/19 22:50 ALT 23 units/L (7-56) 01/12/19 22:50 97 units/L (35-129) 01/12/19 22:50 8.1 g/dL (6.3-8.2) 01/12/19 22:50 3.0 g/dL (3.9-5) L 01/12/19 22:50 0.6 % 01/12/19 22:50 Blood Type O NEGATIVE 01/12/19 22:50 Antibody Screen Negative 01/12/19 22:50 Crossmatch See Detail 01/12/19 22:50 Active Medications - Current Medications Current Medications: Generic Name Dose Route Start Last Admin Trade Name Freq PRN Reason Stop Dose Admin Acetaminophen 650 mg 01/13/19 00:17 Tylenol PO Q4H PRN Pain MILD(1-3)/Fever >100.5/MCMILLAN Ceftriaxone Sodium 1 gm in 50 mls @ 100 mls/hr 01/13/19 13:00 01/13/19 14:22 Rocephin/Ns 1 Gm/50 Ml IV 100 mls/hr Q24HR CARMEL Administration Protocol Sodium Chloride 1,000 mls @ 50 mls/hr 01/14/19 08:00 Nacl 0.9% 1000 Ml IV DIRECT CARMEL Sodium Chloride 500 mls @ 0 mls/hr 01/14/19 07:39 Nacl 0.9% 500 Ml IV 01/14/19 16:00 ONCE NR As Directed Lorazepam 4 mg 01/13/19 02:36 01/14/19 01:06 Ativan IV 4 mg Q1HR PRN [facility] 16-25 Lorazepam 2 mg 01/13/19 02:36 01/14/19 03:10 Ativan IV 2 mg Q1HR PRN [facility] 8-15 Ondansetron HCl 4 mg 01/13/19 00:17 Zofran IV Q8H PRN Nausea And Vomiting Pantoprazole Sodium 40 mg 01/13/19 13:00 01/13/19 20:59 Protonix IV 40 mg BID CARMEL Administration Phytonadione 10 mg 01/14/19 07:46 Vitamin K (Adult Only) SUB-Q 01/14/19 07:47 ONCE ONE Sodium Chloride 10 ml 01/13/19 10:00 01/13/19 21:22 Sodium Chloride Flush Syringe 10 Ml IV Not Given BID CARMEL Sodium Chloride 10 ml 01/13/19 00:17 Sodium Chloride Flush Syringe 10 Ml IV PRN PRN LINE FLUSH
[2019-01-14] MEDS ORDERED: VITAMIN K (ADULT ONLY) SUB-Q NR (08:00)
[2019-01-14] MEDS: PROTONIX IV SCH ×2 (10:00→22:08)
[2019-01-14] MEDS: SODIUM CHLORIDE FLUSH SYRINGE 10 ML IV SCH ×2 (10:00→22:09)
[2019-01-14] MEDS: ROCEPHIN/NS 1 GM/50 ML 1 GM/50 ML BAG IV SCH (10:00)
[2019-01-14] MEDS: NACL 0.9% 1000 ML 1,000 ML IV SCH (11:32)
[2019-01-14] MEDS ORDERED: DIPRIVAN 10 MG/ML IV ONE (11:46)
--- NOTE | 2019-01-14 12:17 | Operative Report ---
Operative Report Operative Report: DOS 01/14/19 SURGEON: Bruce Null MD EGD with variceal banding and biopsy polypectomy REPORT PREOPERATIVE DIAGNOSIS and POSTOPERATIVE DIAGNOSIS: GI bleed ESTIMATED BLOOD LOSS: Minimal DESCRIPTION OF PROCEDURE: A high-resolution EGD scope was passed through the oropharynx, esophagus, stomach, and second portion of duodenum. The scope was carefully withdrawn. Retroflexion was performed in the stomach. At the end of the procedure, the scope was cleaned using normal technique. Vital signs monitored continuously throughout. SEDATION: Provided by Anesthesiology Services. COMPLICATIONS: None. FINDINGS: * normal second portion of the duodenum * small 2mm sessile polyp in the duodenal bulb, cold biopsy forceps polypectomy with minimal EBL * Minimal gastritis of the gastric antrum * No gastric varices * GE junction at 43cm from the incisors * 2 large columns of esophageal varices in the distal 1/3 of the esophagus. Possible nipple sign, therefore decision was made to band. Using 6-shooter a total of 3 bands were placed with excellent results. RECOMMENDATIONS: * Given no blood in upper GI tract there is still concern this could be lower GI bleed. Therefore clear liquid diet today, and if patient can tolerate please prep for colonoscopy tomorrow. * If patient has any more bleeding then please obtain tagged RBC scan. * f/u path results * patient will need repeat EGD in 2-6 weeks to ensure eradication of the esophageal varices
[2019-01-14] MEDS ORDERED: NEO SYNEPHRINE/NS Syringe(OR USE) IV ONE (13:00)
[2019-01-14] MEDS ORDERED: GOLYTELY PO ONE (15:00)
[2019-01-14 19:59] LABS: Hematocrit 27.4 % (35.5-45.6)
[2019-01-14 22:09] LABS: Hematocrit 26.9 % (35.5-45.6); Hemoglobin 8.9 gm/dl (11.8-15.2)
[2019-01-15 06:37] LABS: Basophils # (Auto) 0.1 K/mm3 (0.0-0.1); Basophils % (Auto) 0.7 % (0.0-1.8); Eosinophils % (Auto) 0.3 % (0.0-4.3); Hematocrit 27.3 % (35.5-45.6); Hemoglobin 8.9 gm/dl (11.8-15.2); Lymphocytes # (Auto) 0.5 K/mm3 (1.2-5.4); Lymphocytes % (Auto) 3.9 % (13.4-35.0); Mean Corpuscular HGB Conc 33 % (32-34); Mean Corpuscular Volume 86 fl (84-94); Monocytes # (Auto) 0.8 K/mm3 (0.0-0.8); Monocytes % (Auto) 6.7 % (0.0-7.3); Red Blood Count 3.16 M/mm3 (3.65-5.03); Red Cell Distribution Width 18.7 % (13.2-15.2)
[2019-01-15 06:41] LABS: Platelet Count 74 K/mm3 (140-440)
[2019-01-15] MEDS: NACL 0.9% 1000 ML 1,000 ML IV SCH (06:42)
[2019-01-15 06:53] LABS: BUN/Creatinine Ratio 18; Blood Urea Nitrogen 9 mg/dL (9-20); Hemolysis Index 9
--- NOTE | 2019-01-15 08:33 | Progress Note ---
Assessment and Plan Assessment and plan: --Hypokalemia; replace, monitor levels --Hypophosphatemia; IV K-Phos, follow levels --Hypomagnesemia; IV mag sulfate, follow magnesium levels --Lower GI bleeding: s/p EGD :2 large columns of esophageal varices in the distal 1/3 of the esophagus. s/p a total of 3 bands were placed with excellent results. Scheduled for colonoscopy today --Acute Blood loss Anemia: s/p total 5 units PRBC transfusion Hb 4.9-8.2-6.6-8.9, closely monitor H&H Transfuse as needed --Hyponatremia; sodium levels improved free water restriction, Normal saline, --Alcoholic liver disease/ Cirrhosis Liver: Supportive care, GI following --Coagulopathy: due to cirrhosis: Vit K as needed Monitor PT/INR --Chronic alcohol use; counseling Advised to quit alcohol intake --Alcohol withdrawal: Continue CIWA protocols Patient advised to seek alcohol detox/alcohol rehab Upon discharge --DVT prophylaxis:SCD Monitor closely and adjust management as needed Plan of care reviewed with the patient and his nurse History Interval history: Patient seen and examined medical records reviewed No new events reported by nursing staff Patient scheduled for colonoscopy today Vital signs noted Hospitalist Physical - Constitutional Vitals: Temp Pulse Resp BP Pulse Ox 98.3 F 94 H 14 133/72 100 01/15/19 08:26 01/15/19 08:26 01/15/19 08:26 01/15/19 08:26 01/15/19 08:26 General appearance: Present: no acute distress, well-nourished, other (confused at times) - EENT Eyes: Present: PERRL, EOM intact - Neck Neck: Present: supple, normal ROM - Respiratory Respiratory effort: normal Respiratory: bilateral: diminished, negative: rales, rhonchi, wheezing - Cardiovascular Rhythm: regular Heart Sounds: Present: S1 & S2 - Extremities Extremities: no ischemia, No edema - Abdominal General gastrointestinal: soft, non-tender, non-distended - Integumentary Integumentary: Present: clear, warm - Psychiatric Psychiatric: appropriate mood/affect, cooperative - Neurologic Neurologic: CNII-XII intact, moves all extremities Results - Labs CBC & Chem 7: 01/15/19 04:31 01/15/19 04:31 Labs: Laboratory Last Values WBC 12.0 K/mm3 (4.5-11.0) H 01/15/19 04:31 RBC 3.16 M/mm3 (3.65-5.03) L 01/15/19 04:31 Hgb 8.9 gm/dl (11.8-15.2) L 01/15/19 04:31 Hct 27.3 % (35.5-45.6) L 01/15/19 04:31 MCV 86 fl (84-94) 01/15/19 04:31 MCH 28 pg (28-32) 01/15/19 04:31 MCHC 33 % (32-34) 01/15/19 04:31 RDW 18.7 % (13.2-15.2) H 01/15/19 04:31 Plt Count 74 K/mm3 (140-440) L 01/15/19 04:31 Lymph % (Auto) 3.9 % (13.4-35.0) L 01/15/19 04:31 [place] % (Auto) 6.7 % (0.0-7.3) 01/15/19 04:31 Eos % (Auto) 0.3 % (0.0-4.3) 01/15/19 04:31 Baso % (Auto) 0.7 % (0.0-1.8) 01/15/19 04:31 Lymph # 0.5 K/mm3 (1.2-5.4) L 01/15/19 04:31 [place] # 0.8 K/mm3 (0.0-0.8) 01/15/19 04:31 Eos # 0.0 K/mm3 (0.0-0.4) 01/15/19 04:31 Baso # 0.1 K/mm3 (0.0-0.1) 01/15/19 04:31 Seg Neutrophils % 88.4 % (40.0-70.0) H 01/15/19 04:31 Seg Neutrophils # 10.6 K/mm3 (1.8-7.7) H 01/15/19 04:31 PT 19.2 Sec. (12.2-14.9) H 01/14/19 05:42 INR 1.66 (0.87-1.13) H 01/14/19 05:42 APTT 41.2 Sec. (24.2-36.6) H 01/12/19 22:50 Sodium 138 mmol/L (137-145) 01/15/19 04:31 Potassium 3.3 mmol/L (3.6-5.0) L 01/15/19 04:31 Chloride 102.8 mmol/L (98-107) 01/15/19 04:31 Carbon Dioxide 22 mmol/L (22-30) 01/15/19 04:31 17 mmol/L 01/15/19 04:31 BUN 9 mg/dL (9-20) 01/15/19 04:31 0.5 mg/dL (0.8-1.5) L 01/15/19 04:31 Estimated GFR > 60 ml/min 01/15/19 04:31 18 % 01/15/19 04:31 Glucose 83 mg/dL (75-100) 01/15/19 04:31 Calcium 8.0 mg/dL (8.4-10.2) L 01/15/19 04:31 Phosphorus 1.80 mg/dL (2.5-4.5) L 01/15/19 04:31 Magnesium 1.30 mg/dL (1.7-2.3) L 01/15/19 04:31 0.60 mg/dL (0.1-1.2) 01/12/19 22:50 AST 102 units/L (5-40) H 01/12/19 22:50 ALT 23 units/L (7-56) 01/12/19 22:50 97 units/L (35-129) 01/12/19 22:50 8.1 g/dL (6.3-8.2) 01/12/19 22:50 3.0 g/dL (3.9-5) L 01/12/19 22:50 0.6 % 01/12/19 22:50 Blood Type O NEGATIVE 01/12/19 22:50 Antibody Screen Negative 01/12/19 22:50 Crossmatch See Detail 01/12/19 22:50 Active Medications - Current Medications Current Medications: Generic Name Dose Route Start Last Admin Trade Name Freq PRN Reason Stop Dose Admin Acetaminophen 650 mg 01/13/19 00:17 Tylenol PO Q4H PRN Pain MILD(1-3)/Fever >100.5/MCMILLAN Ceftriaxone Sodium 1 gm in 50 mls @ 100 mls/hr 01/13/19 13:00 01/14/19 10:00 Rocephin/Ns 1 Gm/50 Ml IV 100 mls/hr Q24HR CARMEL Administration Protocol Sodium Chloride 1,000 mls @ 50 mls/hr 01/14/19 08:00 01/15/19 06:42 Nacl 0.9% 1000 Ml IV 50 mls/hr DIRECT CARMEL Administration Potassium Phosphate 40 mmol/ 513.3333 mls @ 83 mls/hr 01/15/19 08:31 Sodium Chloride IV 01/15/19 14:42 ONCE ONE Magnesium Sulfate 4 gm in 100 mls @ 25 mls/hr 01/15/19 08:31 Magnesium Sulfate 4gm/100ml IV 01/15/19 12:30 ONCE ONE Lorazepam 4 mg 01/13/19 02:36 01/14/19 01:06 Ativan IV 4 mg Q1HR PRN Administration CIWA-Ar 16-25 Lorazepam 2 mg 01/13/19 02:36 01/14/19 03:10 Ativan IV 2 mg Q1HR PRN Administration CIWA-Ar 8-15 Ondansetron HCl 4 mg 01/13/19 00:17 Zofran IV Q8H PRN Nausea And Vomiting Pantoprazole Sodium 40 mg 01/13/19 13:00 01/14/19 22:08 Protonix IV 40 mg BID CARMEL Administration Sodium Chloride 10 ml 01/13/19 10:00 01/14/19 22:09 Sodium Chloride Flush Syringe 10 Ml IV 10 ml BID CARMEL Administration Sodium Chloride 10 ml 01/13/19 00:17 Sodium Chloride Flush Syringe 10 Ml IV PRN PRN LINE FLUSH
--- NOTE | 2019-01-15 09:43 | Anesthesia Day of Surgery ---
Anesthesia Day of Surgery - Day of Surgery Patient Examined: Yes Patient H&P Reviewed: Yes Patient is NPO: Yes
--- NOTE | 2019-01-15 09:43 | Anesthesia Consultation ---
Anesthesia Consult and Med Hx Date of service: 01/15/19 - Airway Anesthetic Teeth Evaluation: Poor, Dentures ROM Head & Neck: Adequate Mental/Hyoid Distance: Adequate Mallampati Class: Class II Intubation Access Assessment: Probably Good - Pulmonary Exam CTA: Yes - Cardiac Exam Cardiac Exam: RRR - Pre-Operative Health Status ASA Pre-Surgery Classification: ASA3 Proposed Anesthetic Plan: MAC - Pulmonary Hx Smoking: Yes (1/2 p/day x 35 years) Hx Asthma: No COPD: No Hx Pneumonia: No (LLL lung mass) - Cardiovascular System Hx Hypertension: Yes Hx Angina: No (high cholesterol) - Central Nervous System Hx Psychiatric Problems: No - Endocrine Hx End Stage Renal Disease: No Hx Cirrhosis: Yes Hx Liver Disease: Yes (enlarged liver) - Hematic Hx Anemia: Yes - Other Systems Hx Alcohol Use: Yes (DAILY) Hx Cancer: Yes (PROSTATE)
[2019-01-15] MEDS ORDERED: MAGNESIUM SULFATE 4GM/100ML 4 GM/100 ML BAG IV ONE (10:00)
[2019-01-15] MEDS ORDERED: XYLOCAINE MPF 2% ONE (10:00)
[2019-01-15] MEDS ORDERED: KPHOS 40 MMOL in NACL 0.9% 500 ML 500 ML IV ONE (10:00)
[2019-01-15] MEDS ORDERED: DIPRIVAN 10 MG/ML IV ONE ×2 (10:03)
--- NOTE | 2019-01-15 10:49 | Operative Report ---
Operative Report Operative Report: SURGEON: Bruce Null MD COLONOSCOPY with hemostasis and biopsy REPORT PREOPERATIVE AND POSTOPERATIVE DIAGNOSIS: GI Bleed DESCRIPTION OF PROCEDURE: The colonoscope was passed to the terminal ileum as identified by the ileal tissue. Scope was carefully withdrawn. Retroflexion was performed in the rectum. At the end of procedure, the scope was cleaned using normal technique. Vital signs monitored continuously throughout. SEDATION: Provided by Anesthesiology Services. Quality of the prep was limited COMPLICATIONS: None. ESTIMATED BLOOD LOSS: 50cc FINDINGS: * Normal Terminal Ileum * Mild to moderate amount of liquid stool adhering to the cecum, ascending, transverse, descending, sigmoid colon. Limiting views. No blood in these areas, no lesions seen. * Large area of nodularity, friability, ulceration, with active oozing of blood was seen in the rectum. This is a source of the GI bleeding. The area of nodularity and ulceration was approximately one third of the circumference of the rectum, biopsies were obtained with cold biopsy forceps to rule out dysplasia. * Given the active bleeding from the lesion, decision was made to proceed with intervention for hemostasis. The Cook Hemospray device was then used, with multiple applications performed over the lesion using 1 device, at the end of application complete hemostasis had been achieved with no further bleeding RECOMMENDATIONS: * Patient should remain nothing by mouth for the next 3 hours, then may start on clear liquids thereafter, after 6 hours from now as long as no further bleeding patient may be started on a diet. * Follow-up biopsy results
[2019-01-15] MEDS: ROCEPHIN/NS 1 GM/50 ML 1 GM/50 ML BAG IV SCH (11:50)
[2019-01-15] MEDS: PROTONIX IV SCH ×2 (11:50→22:19)
[2019-01-15] MEDS: SODIUM CHLORIDE FLUSH SYRINGE 10 ML IV SCH ×2 (11:51→22:20)
[2019-01-16 06:00] LABS: Basophils % (Auto) 0.3 % (0.0-1.8); Eosinophils # (Auto) 0.1 K/mm3 (0.0-0.4); Eosinophils % (Auto) 1.1 % (0.0-4.3); Hematocrit 26.5 % (35.5-45.6); Hemoglobin 8.8 gm/dl (11.8-15.2); Lymphocytes # (Auto) 0.7 K/mm3 (1.2-5.4); Lymphocytes % (Auto) 7.8 % (13.4-35.0); Mean Corpuscular HGB Conc 33 % (32-34); Mean Corpuscular Volume 86 fl (84-94); Monocytes # (Auto) 0.7 K/mm3 (0.0-0.8); Monocytes % (Auto) 7.5 % (0.0-7.3); Red Blood Count 3.09 M/mm3 (3.65-5.03); Red Cell Distribution Width 19.4 % (13.2-15.2)
[2019-01-16 06:03] LABS: Platelet Count 81 K/mm3 (140-440)
[2019-01-16 06:40] LABS: BUN/Creatinine Ratio 15; Blood Urea Nitrogen 6 mg/dL (9-20); Hemolysis Index 44
[2019-01-16] MEDS: ROCEPHIN/NS 1 GM/50 ML 1 GM/50 ML BAG IV SCH (09:12)
[2019-01-16] MEDS: SODIUM CHLORIDE FLUSH SYRINGE 10 ML IV SCH ×2 (09:12→22:07)
[2019-01-16] MEDS: PROTONIX IV SCH ×2 (09:13→22:06)
[2019-01-16] MEDS: ATIVAN IV PRN ×3 (09:13→19:35)
--- NOTE | 2019-01-16 11:13 | Gastroenterology Progress Note ---
<VISHNU BROWN - Last Filed: 01/16/19 11:28> Assessment and Plan 1.GI bleed/hematochezia 2.H/o alcoholic cirrhosis 3.H/o prostate cancer (s/p surgery/radiation) -H/H 8.8/26.5-stable -no active signs of bleeding overnight or this am per nursing -continue to monitor H/H and transfuse as needed -EGD [address] Keene that showed small caliber esophageal varices, portal hypertension gastropathy, and erosive duodentitis -s/p EGD 01/14 that showed small 2mm sessile polyp in duodenal bulb, minimal gastritis, no gastric varices, and 2 large columns of esophageal varices in the distal 1/3 of the esophagus with possible nipple sign (banded x 3) -s/p colonosccopy 01/15 that showed normal TI and a large area of nodularity, friability, ulceration, with active oozing of blood was seen in the rectum (source for GI bleeding; s/p tx with Hemospray) -bx results pending -okay to advance to soft diet as tolerated -continue PPI and prophylactic antibiotics -alcohol cessation-continue CIWA protocol -continue to trend labs and supportive care -will follow Subjective Date of service: 01/16/19 Principal diagnosis: GI bleed Interval history: No active signs of bleeding overnight or this am per nursing. Objective - Constitutional Vitals: Temp Pulse Resp BP Pulse Ox 98.6 F 60 20 147/70 98 01/16/19 08:11 01/16/19 08:11 01/16/19 08:11 01/16/19 08:11 01/16/19 08:11 General appearance: no acute distress, other (confused, somnolent) - Respiratory Respiratory effort: normal - Cardiovascular Rhythm: regular - Gastrointestinal General gastrointestinal: Present: soft, non-distended, normal bowel sounds - Labs CBC & Chem 7: 01/16/19 05:28 01/16/19 05:28 Labs: Laboratory Results - last 24 hr 01/16/19 01/16/19 05:28 05:28 WBC 8.9 RBC 3.09 L Hgb 8.8 L Hct 26.5 L MCV 86 MCH 29 MCHC 33 RDW 19.4 H Plt Count 81 L Lymph % (Auto) 7.8 L [place] % (Auto) 7.5 H Eos % (Auto) 1.1 Baso % (Auto) 0.3 Lymph # 0.7 L [place] # 0.7 Eos # 0.1 Baso # 0.0 Seg Neutrophils % 83.3 H Seg Neutrophils # 7.4 Sodium 138 Potassium 3.3 L Chloride 104.2 Carbon Dioxide 20 L Anion Gap 17 BUN 6 L Creatinine 0.4 L Estimated GFR > 60 BUN/Creatinine Ratio 15 Glucose 95 Calcium 8.0 L Phosphorus 2.40 L D Magnesium 1.70 <HIEU DEJESUS - Last Filed: 01/16/19 23:07> Subjective Interval history: Patient seen and examined. I agree with the advanced practitioner's assessment and plan with the following additions: Patient with no more clinical bleeding, Mental status is starting to improve, awaiting biopsy results. Please avoid opiates and benzodiazepines Objective - Constitutional Vitals: Temp Pulse Resp BP Pulse Ox 99.2 F 84 18 143/72 96 01/16/19 19:41 01/16/19 19:41 01/16/19 19:41 01/16/19 19:41 01/16/19 20:19 - Labs CBC & Chem 7: 01/16/19 05:28 01/16/19 05:28 Labs: Laboratory Results - last 24 hr 01/16/19 01/16/19 05:28 05:28 WBC 8.9 RBC 3.09 L Hgb 8.8 L Hct 26.5 L MCV 86 MCH 29 MCHC 33 RDW 19.4 H Plt Count 81 L Lymph % (Auto) 7.8 L [place] % (Auto) 7.5 H Eos % (Auto) 1.1 Baso % (Auto) 0.3 Lymph # 0.7 L [place] # 0.7 Eos # 0.1 Baso # 0.0 Seg Neutrophils % 83.3 H Seg Neutrophils # 7.4 Sodium 138 Potassium 3.3 L Chloride 104.2 Carbon Dioxide 20 L Anion Gap 17 BUN 6 L Creatinine 0.4 L Estimated GFR > 60 BUN/Creatinine Ratio 15 Glucose 95 Calcium 8.0 L Phosphorus 2.40 L D Magnesium 1.70
--- NOTE | 2019-01-16 11:24 | Progress Note ---
Assessment and Plan Assessment and plan: --Hypokalemia; replace, monitor levels --Hypophosphatemia; IV K-Phos, follow levels --Hypomagnesemia;corrected --Lower GI bleeding: s/p EGD :2 large columns of esophageal varices in the distal 1/3 of the esophagus. s/p a total of 3 bands were placed with excellent results. Scheduled for colonoscopy today --Acute Blood loss Anemia: s/p total 5 units PRBC transfusion Hb 4.9-8.2-6.6-8.9, closely monitor H&H Transfuse as needed --Hyponatremia; sodium levels improved free water restriction, Normal saline, --Alcoholic liver disease/ Cirrhosis Liver: Supportive care, GI following --Coagulopathy: due to cirrhosis: Vit K as needed Monitor PT/INR --Chronic alcohol use; counseling Advised to quit alcohol intake --Alcohol withdrawal: Continue CIWA protocols Patient advised to seek alcohol detox/alcohol rehab Upon discharge --DVT prophylaxis:SCD Monitor closely and adjust management as needed Plan of care reviewed with the patient and his nurse Patient is stable to be transferred out of telemetry to [facility] unit History Interval history: Patient seen and examined medical records reviewed Patient has mild tremulousness, no other complaints On CIWA protocol Vital signs noted Hospitalist Physical - Constitutional Vitals: Temp Pulse Resp BP Pulse Ox 98.6 F 60 20 147/70 98 01/16/19 08:11 01/16/19 08:11 01/16/19 08:11 01/16/19 08:11 01/16/19 08:11 General appearance: Present: no acute distress, well-nourished, other (confused at times) - EENT Eyes: Present: PERRL, EOM intact - Neck Neck: Present: supple, normal ROM - Respiratory Respiratory effort: normal Respiratory: bilateral: diminished, negative: rales, rhonchi, wheezing - Cardiovascular Rhythm: regular Heart Sounds: Present: S1 & S2 - Extremities Extremities: no ischemia, No edema - Abdominal General gastrointestinal: soft, non-distended, normal bowel sounds - Integumentary Integumentary: Present: clear, warm - Psychiatric Psychiatric: appropriate mood/affect, cooperative, other (mild confusion at rebecca es and tremulousness) - Neurologic Neurologic: moves all extremities Results - Labs CBC & Chem 7: 01/17/19 10:54 01/17/19 04:33 Labs: Laboratory Last Values WBC 8.9 K/mm3 (4.5-11.0) 01/16/19 05:28 RBC 3.09 M/mm3 (3.65-5.03) L 01/16/19 05:28 Hgb 8.8 gm/dl (11.8-15.2) L 01/16/19 05:28 Hct 26.5 % (35.5-45.6) L 01/16/19 05:28 MCV 86 fl (84-94) 01/16/19 05:28 MCH 29 pg (28-32) 01/16/19 05:28 MCHC 33 % (32-34) 01/16/19 05:28 RDW 19.4 % (13.2-15.2) H 01/16/19 05:28 Plt Count 81 K/mm3 (140-440) L 01/16/19 05:28 Lymph % (Auto) 7.8 % (13.4-35.0) L 01/16/19 05:28 [place] % (Auto) 7.5 % (0.0-7.3) H 01/16/19 05:28 Eos % (Auto) 1.1 % (0.0-4.3) 01/16/19 05:28 Baso % (Auto) 0.3 % (0.0-1.8) 01/16/19 05:28 Lymph # 0.7 K/mm3 (1.2-5.4) L 01/16/19 05:28 [place] # 0.7 K/mm3 (0.0-0.8) 01/16/19 05:28 Eos # 0.1 K/mm3 (0.0-0.4) 01/16/19 05:28 Baso # 0.0 K/mm3 (0.0-0.1) 01/16/19 05:28 Seg Neutrophils % 83.3 % (40.0-70.0) H 01/16/19 05:28 Seg Neutrophils # 7.4 K/mm3 (1.8-7.7) 01/16/19 05:28 PT 19.2 Sec. (12.2-14.9) H 01/14/19 05:42 INR 1.66 (0.87-1.13) H 01/14/19 05:42 APTT 41.2 Sec. (24.2-36.6) H 01/12/19 22:50 Sodium 138 mmol/L (137-145) 01/16/19 05:28 Potassium 3.3 mmol/L (3.6-5.0) L 01/16/19 05:28 Chloride 104.2 mmol/L (98-107) 01/16/19 05:28 Carbon Dioxide 20 mmol/L (22-30) L 01/16/19 05:28 17 mmol/L 01/16/19 05:28 BUN 6 mg/dL (9-20) L 01/16/19 05:28 0.4 mg/dL (0.8-1.5) L 01/16/19 05:28 Estimated GFR > 60 ml/min 01/16/19 05:28 15 % 01/16/19 05:28 Glucose 95 mg/dL (75-100) 01/16/19 05:28 Calcium 8.0 mg/dL (8.4-10.2) L 01/16/19 05:28 Phosphorus 2.40 mg/dL (2.5-4.5) L D 01/16/19 05:28 Magnesium 1.70 mg/dL (1.7-2.3) 01/16/19 05:28 0.60 mg/dL (0.1-1.2) 01/12/19 22:50 AST 102 units/L (5-40) H 01/12/19 22:50 ALT 23 units/L (7-56) 01/12/19 22:50 97 units/L (35-129) 01/12/19 22:50 8.1 g/dL (6.3-8.2) 01/12/19 22:50 3.0 g/dL (3.9-5) L 01/12/19 22:50 0.6 % 01/12/19 22:50 Blood Type O NEGATIVE 01/12/19 22:50 Antibody Screen Negative 01/12/19 22:50 Crossmatch See Detail 01/12/19 22:50 Active Medications - Current Medications Current Medications: Generic Name Dose Route Start Last Admin Trade Name Aletha PRN Reason Stop Dose Admin Acetaminophen 650 mg 06/17/19 00:17 Tylenol PO Q4H PRN Pain MILD(1-3)/Fever >100.5/MCMILLAN Ceftriaxone Sodium 1 gm in 50 mls @ 100 mls/hr 01/13/19 13:00 01/16/19 09:12 Rocephin/Ns 1 Gm/50 Ml IV 100 mls/hr Q24HR CARMEL Administration Protocol Sodium Chloride 1,000 mls @ 50 mls/hr 01/14/19 08:00 01/15/19 06:42 Nacl 0.9% 1000 Ml IV 50 mls/hr DIRECT CARMEL Administration Lorazepam 4 mg 01/13/19 02:36 01/14/19 01:06 Ativan IV 4 mg Q1HR PRN Administration CIWA-Ar 16-25 Lorazepam 2 mg 01/13/19 02:36 01/16/19 09:13 Ativan IV 2 mg Q1HR PRN Administration CIWA-Ar 8-15 Ondansetron HCl 4 mg 01/13/19 00:17 Zofran IV Q8H PRN Nausea And Vomiting Pantoprazole Sodium 40 mg 01/13/19 13:00 01/16/19 09:13 Protonix IV 40 mg BID CARMEL Administration Potassium Chloride 40 meq 01/16/19 12:20 K-Dur PO 01/16/19 12:21 ONCE ONE Sodium Chloride 10 ml 01/13/19 10:00 01/16/19 09:12 Sodium Chloride Flush Syringe 10 Ml IV 10 ml BID CARMEL Administration Sodium Chloride 10 ml 01/13/19 00:17 Sodium Chloride Flush Syringe 10 Ml IV PRN PRN LINE FLUSH
[2019-01-16] MEDS ORDERED: K-DUR PO ONE (12:20)
[2019-01-16] MEDS ORDERED: POTASSIUM CHLORIDE PO NR ×2 (12:30)
[2019-01-16] MEDS: NACL 0.9% 1000 ML 1,000 ML IV SCH (14:50)
[2019-01-16] MEDS: PHOS-NAK PO SCH (22:06)
[2019-01-17 06:53] LABS: BUN/Creatinine Ratio 15; Blood Urea Nitrogen 6 mg/dL (9-20); Hemolysis Index 5
[2019-01-17] MEDS: PROTONIX IV SCH ×2 (08:59→22:51)
[2019-01-17] MEDS: PHOS-NAK PO SCH ×2 (09:00→22:51)
[2019-01-17] MEDS: ROCEPHIN/NS 1 GM/50 ML 1 GM/50 ML BAG IV SCH (09:01)
[2019-01-17] MEDS: SODIUM CHLORIDE FLUSH SYRINGE 10 ML IV SCH (09:01)
[2019-01-17] MEDS ORDERED: ATIVAN IV PRN (09:13)
--- NOTE | 2019-01-17 09:18 | Progress Note ---
Assessment and Plan Assessment and plan: --Hypokalemia; replace, monitor levels --Hypophosphatemia; --replaced, monitor levels --Hypomagnesemia;corrected --Lower GI bleeding: s/p EGD :2 large columns of esophageal varices in the distal 1/3 of the esophagus. s/p a total of 3 bands were placed with excellent results. s/p colonoscopy;Large area of nodularity, friability, ulceration, with active oozing of blood was seen in the rectum. This is a source of the GI bleeding, s/p biopsy --Acute Blood loss Anemia: s/p total 5 units PRBC transfusion Hb 4.9-8.2-6.6-8.9-8.6 closely monitor H&H Transfuse as needed --Hyponatremia; sodium levels improved free water restriction, Normal saline, --Alcoholic liver disease/ Cirrhosis Liver: Supportive care, GI following --Coagulopathy: due to cirrhosis: Vit K as needed Monitor PT/INR --Chronic alcohol use; counseling Advised to quit alcohol intake --Alcohol withdrawal: Ativan as needed[CIWA protocol] Patient advised to seek alcohol detox/alcohol rehab Upon discharge --Physical therapy and occupational therapy --DVT prophylaxis:SCD Possible discharge in 1-2 days if stable Monitor closely and adjust management as needed Plan of care reviewed with the patient and his nurse History Interval history: Patient seen and examined medical history Patient feels better more alert and awake not tremulousness Or agitation, off restrains Hospitalist Physical - Constitutional Vitals: Temp Pulse Resp BP Pulse Ox 97.9 F 93 H 20 139/74 98 01/17/19 07:22 01/17/19 07:22 01/17/19 07:22 01/17/19 07:22 01/17/19 08:14 General appearance: Present: no acute distress, well-nourished - EENT Eyes: Present: PERRL, EOM intact - Neck Neck: Present: supple, normal ROM - Respiratory Respiratory effort: normal Respiratory: bilateral: diminished, negative: rales, rhonchi, wheezing - Cardiovascular Rhythm: regular Heart Sounds: Present: S1 & S2 - Extremities Extremities: no ischemia, No edema - Abdominal General gastrointestinal: soft, non-tender, non-distended, normal bowel sounds - Integumentary Integumentary: Present: clear, warm - Psychiatric Psychiatric: appropriate mood/affect - Neurologic Neurologic: CNII-XII intact, moves all extremities Results - Labs CBC & Chem 7: 01/17/19 10:54 01/17/19 04:33 Labs: Laboratory Last Values WBC 8.9 K/mm3 (4.5-11.0) 01/16/19 05:28 RBC 3.09 M/mm3 (3.65-5.03) L 01/16/19 05:28 Hgb 8.8 gm/dl (11.8-15.2) L 01/16/19 05:28 Hct 26.5 % (35.5-45.6) L 01/16/19 05:28 MCV 86 fl (84-94) 01/16/19 05:28 MCH 29 pg (28-32) 01/16/19 05:28 MCHC 33 % (32-34) 01/16/19 05:28 RDW 19.4 % (13.2-15.2) H 01/16/19 05:28 Plt Count 81 K/mm3 (140-440) L 01/16/19 05:28 Lymph % (Auto) 7.8 % (13.4-35.0) L 01/16/19 05:28 [place] % (Auto) 7.5 % (0.0-7.3) H 01/16/19 05:28 Eos % (Auto) 1.1 % (0.0-4.3) 01/16/19 05:28 Baso % (Auto) 0.3 % (0.0-1.8) 01/16/19 05:28 Lymph # 0.7 K/mm3 (1.2-5.4) L 01/16/19 05:28 [place] # 0.7 K/mm3 (0.0-0.8) 01/16/19 05:28 Eos # 0.1 K/mm3 (0.0-0.4) 01/16/19 05:28 Baso # 0.0 K/mm3 (0.0-0.1) 01/16/19 05:28 Seg Neutrophils % 83.3 % (40.0-70.0) H 01/16/19 05:28 Seg Neutrophils # 7.4 K/mm3 (1.8-7.7) 01/16/19 05:28 PT 19.2 Sec. (12.2-14.9) H 01/14/19 05:42 INR 1.66 (0.87-1.13) H 01/14/19 05:42 APTT 41.2 Sec. (24.2-36.6) H 01/12/19 22:50 Sodium 131 mmol/L (137-145) L D 01/17/19 04:33 Potassium 3.4 mmol/L (3.6-5.0) L 01/17/19 04:33 Chloride 99.6 mmol/L (98-107) 01/17/19 04:33 Carbon Dioxide 18 mmol/L (22-30) L 01/17/19 04:33 17 mmol/L 01/17/19 04:33 BUN 6 mg/dL (9-20) L 01/17/19 04:33 0.4 mg/dL (0.8-1.5) L 01/17/19 04:33 Estimated GFR > 60 ml/min 01/17/19 04:33 15 % 01/17/19 04:33 Glucose 93 mg/dL (75-100) 01/17/19 04:33 Calcium 8.0 mg/dL (8.4-10.2) L 01/17/19 04:33 Phosphorus 2.40 mg/dL (2.5-4.5) L D 01/16/19 05:28 Magnesium 1.50 mg/dL (1.7-2.3) L 01/17/19 04:33 0.60 mg/dL (0.1-1.2) 01/12/19 22:50 AST 102 units/L (5-40) H 01/12/19 22:50 ALT 23 units/L (7-56) 01/12/19 22:50 97 units/L (35-129) 01/12/19 22:50 8.1 g/dL (6.3-8.2) 01/12/19 22:50 3.0 g/dL (3.9-5) L 01/12/19 22:50 0.6 % 01/12/19 22:50 Blood Type O NEGATIVE 01/12/19 22:50 Antibody Screen Negative 01/12/19 22:50 Crossmatch See Detail 01/12/19 22:50 Active Medications - Current Medications Current Medications: Generic Name Dose Route Start Last Admin Trade Name Aletha PRN Reason Stop Dose Admin Acetaminophen 650 mg 01/13/19 00:17 Tylenol PO Q4H PRN Pain MILD(1-3)/Fever >100.5/MCMILLAN Ceftriaxone Sodium 1 gm in 50 mls @ 100 mls/hr 01/13/19 13:00 01/17/19 09:01 Rocephin/Ns 1 Gm/50 Ml IV 100 mls/hr Q24HR CARMEL Administration Protocol Sodium Chloride 1,000 mls @ 75 mls/hr 01/14/19 08:00 01/16/19 14:50 Nacl 0.9% 1000 Ml IV 50 mls/hr DIRECT CARMEL Administration Magnesium Sulfate 2 gm in 50 mls @ 25 mls/hr 01/17/19 09:10 Magnesium Sulfate 2gm/50ml IV 01/17/19 11:09 ONCE ONE Lorazepam 2 mg 01/17/19 09:13 Ativan IV Q4H PRN Agitation Ondansetron HCl 4 mg 01/13/19 00:17 Zofran IV Q8H PRN Nausea And Vomiting Pantoprazole Sodium 40 mg 01/13/19 13:00 01/17/19 08:59 Protonix IV 40 mg BID CARMEL Administration Potassium Chloride 30 meq 01/17/19 09:11 K-Dur PO 01/17/19 09:12 ONCE ONE Potassium Phos/Sodium Phos 1 each 01/16/19 22:00 01/17/19 09:00 Phos-Nak PO 01/18/19 10:01 1 each Q12HR CARMEL Administration Sodium Chloride 10 ml 01/13/19 10:00 01/17/19 09:01 Sodium Chloride Flush Syringe 10 Ml IV Not Given BID CARMEL Sodium Chloride 10 ml 01/13/19 00:17 Sodium Chloride Flush Syringe 10 Ml IV PRN PRN LINE FLUSH
[2019-01-17] MEDS ORDERED: K-DUR PO ONE (10:00)
[2019-01-17] MEDS ORDERED: MAGNESIUM SULFATE 2GM/50ML 2 GM/50 ML BAG IV ONE (10:00)
[2019-01-17] MEDS ORDERED: K-DUR PO SCH (10:00)
[2019-01-17] MEDS ORDERED: NON-FORMULARY (Multivit-Min/Iron Fum/Folic Ac [Multi-Vitamin-Minerals Tablet] 1 EACH) PO SCH (10:00)
[2019-01-17] MEDS: K-DUR PO SCH (10:04)
[2019-01-17] MEDS: THERAGRAN-M Tab PO SCH (10:04)
[2019-01-17 11:30] LABS: Hematocrit 26.2 % (35.5-45.6); Hemoglobin 8.6 gm/dl (11.8-15.2)
--- NOTE | 2019-01-17 11:54 | Gastroenterology Progress Note ---
<VISHNU BROWN - Last Filed: 01/17/19 11:54> Assessment and Plan 1.GI bleed/hematochezia 2.H/o alcoholic cirrhosis 3.H/o prostate cancer (s/p surgery/radiation) -H/H 8.6/26.2-stable -no active signs of bleeding overnight or this am per nursing -continue to monitor H/H and transfuse as needed -EGD [address] Keene that showed small caliber esophageal varices, portal hypertension gastropathy, and erosive duodentitis -s/p EGD 01/14 that showed small 2mm sessile polyp in duodenal bulb, minimal gastritis, no gastric varices, and 2 large columns of esophageal varices in the distal 1/3 of the esophagus with possible nipple sign (banded x 3) -s/p colonosccopy 01/15 that showed normal TI and a large area of nodularity, friability, ulceration, with active oozing of blood was seen in the rectum (source for GI bleeding; s/p tx with Hemospray) -bx results pending-f/u in clinic -mental status improving-avoid opiates and benzodiazepines -okay to advance to soft diet as tolerated -continue PPI and prophylactic antibiotics -alcohol cessation-continue CIWA protocol -continue to trend labs and supportive care -patient to f/u in clinic upon discharge for further management -no further recommendations per GI standpoint at this time. Will sign off, please call if needed Subjective Date of service: 01/17/19 Principal diagnosis: GI bleed Interval history: No active signs of bleeding overnight or this am per nursing. Objective - Constitutional Vitals: Temp Pulse Resp BP Pulse Ox 97.9 F 93 H 16 139/74 98 01/17/19 07:22 01/17/19 10:00 01/17/19 10:00 01/17/19 07:22 01/17/19 10:00 General appearance: no acute distress - Respiratory Respiratory effort: normal - Cardiovascular Rhythm: regular - Gastrointestinal General gastrointestinal: Present: soft, non-tender, non-distended, normal bowel sounds - Labs CBC & Chem 7: 01/17/19 10:54 01/17/19 04:33 Labs: Laboratory Results - last 24 hr 01/17/19 01/17/19 04:33 10:54 Hgb 8.6 L Hct 26.2 L Sodium 131 L D Potassium 3.4 L Chloride 99.6 Carbon Dioxide 18 L Anion Gap 17 BUN 6 L Creatinine 0.4 L Estimated GFR > 60 BUN/Creatinine Ratio 15 Glucose 93 Calcium 8.0 L Magnesium 1.50 L <HIEU DEJESUS - Last Filed: 01/17/19 18:15> Assessment and Plan Patient seen and examined. I have reviewed the advanced practitioners assessment and plan and agree with it with the following additions: Stable no bleeding, follow up in clinic and review path results and medical technologist clinical plan Objective - Constitutional Vitals: Temp Pulse Resp BP Pulse Ox 98.0 F 125 H 18 97/56 98 01/17/19 13:35 01/17/19 13:35 01/17/19 13:35 01/17/19 13:35 01/17/19 13:35 - Labs CBC & Chem 7: 01/17/19 10:54 01/17/19 04:33 Labs: Laboratory Results - last 24 hr 01/17/19 01/17/19 04:33 10:54 Hgb 8.6 L Hct 26.2 L Sodium 131 L D Potassium 3.4 L Chloride 99.6 Carbon Dioxide 18 L Anion Gap 17 BUN 6 L Creatinine 0.4 L Estimated GFR > 60 BUN/Creatinine Ratio 15 Glucose 93 Calcium 8.0 L Magnesium 1.50 L
[2019-01-17] MEDS: HABITROL TD SCH (15:05)
[2019-01-17] MEDS: NACL 0.9% 1000 ML 1,000 ML IV SCH (15:08)
[2019-01-17] MEDS: DESYREL PO SCH (22:51)
[2019-01-18 06:27] LABS: Hematocrit 24.7 % (35.5-45.6); Hemoglobin 8.1 gm/dl (11.8-15.2); Mean Corpuscular HGB Conc 33 % (32-34); Mean Corpuscular Volume 87 fl (84-94); Red Blood Count 2.84 M/mm3 (3.65-5.03)
[2019-01-18 06:42] LABS: Platelet Count 94 K/mm3 (140-440)
[2019-01-18 06:47] LABS: BUN/Creatinine Ratio 16; Blood Urea Nitrogen 8 mg/dL (9-20); Calcium 7.8 mg/dL (8.4-10.2); Hemolysis Index 0
--- NOTE | 2019-01-18 09:14 | Progress Note ---
Assessment and Plan Assessment and plan: --Hypokalemia; K 3.1 KCl 40 mEq 1 dose --Hypophosphatemia; --replaced, monitor levels --Hypomagnesemia;corrected --Lower GI bleeding: s/p EGD :2 large columns of esophageal varices in the distal 1/3 of the esophagus. s/p a total of 3 bands were placed with excellent results. s/p colonoscopy;Large area of nodularity, friability, ulceration, with active oozing of blood was seen in the rectum. This is a source of the GI bleeding, s/p biopsy --Acute Blood loss Anemia: s/p total 5 units PRBC transfusion Hb 4.9-8.2-6.6-8.9-8.6-8.1 closely monitor H&H Transfuse as needed --Hyponatremia; resolved --Alcoholic liver disease/ Cirrhosis Liver: Supportive care, GI following --Coagulopathy: due to cirrhosis: Vit K as needed Monitor PT/INR --Chronic alcohol use; counseling Advised to quit alcohol intake --Alcohol withdrawal: Ativan as needed[CIWA protocol] Patient advised to seek alcohol detox/alcohol rehab Upon discharge --Physical therapy recommended rehabilitation/19/02 personal care --DVT prophylaxis:SCD Possible discharge in 1-2 days if stable Monitor closely and adjust management as needed Plan of care reviewed with the patient and his nurse History Interval history: Patient seen and examined medical records reviewed Patient comfortable, no tremulousness or agitation Vital signs noted Hospitalist Physical - Constitutional Vitals: Temp Pulse Resp BP Pulse Ox 98.5 F 83 18 136/72 98 01/18/19 07:26 01/18/19 07:26 01/18/19 08:51 01/18/19 07:26 01/18/19 08:51 General appearance: Present: no acute distress, well-nourished - EENT Eyes: Present: PERRL, EOM intact - Neck Neck: Present: supple, normal ROM - Respiratory Respiratory effort: normal Respiratory: bilateral: diminished, negative: rales, rhonchi, wheezing - Cardiovascular Rhythm: regular Heart Sounds: Present: S1 & S2 - Extremities Extremities: no ischemia, No edema - Abdominal General gastrointestinal: soft, non-tender, non-distended, normal bowel sounds - Integumentary Integumentary: Present: clear, warm - Psychiatric Psychiatric: appropriate mood/affect, cooperative - Neurologic Neurologic: CNII-XII intact, moves all extremities Results - Labs CBC & Chem 7: 01/18/19 05:03 01/18/19 05:03 Labs: Laboratory Last Values WBC 4.9 K/mm3 (4.5-11.0) 01/18/19 05:03 RBC 2.84 M/mm3 (3.65-5.03) L 01/18/19 05:03 Hgb 8.1 gm/dl (11.8-15.2) L 01/18/19 05:03 Hct 24.7 % (35.5-45.6) L 01/18/19 05:03 MCV 87 fl (84-94) 01/18/19 05:03 MCH 29 pg (28-32) 01/18/19 05:03 MCHC 33 % (32-34) 01/18/19 05:03 RDW 20.0 % (13.2-15.2) H 01/18/19 05:03 Plt Count 94 K/mm3 (140-440) L 01/18/19 05:03 Lymph % (Auto) 7.8 % (13.4-35.0) L 01/16/19 05:28 [place] % (Auto) Flight Mechanic 01/18/19 05:03 Eos % (Auto) 1.1 % (0.0-4.3) 01/16/19 05:28 Baso % (Auto) 0.3 % (0.0-1.8) 01/16/19 05:28 Lymph # 0.7 K/mm3 (1.2-5.4) L 01/16/19 05:28 [place] # 0.7 K/mm3 (0.0-0.8) 01/16/19 05:28 Eos # 0.1 K/mm3 (0.0-0.4) 01/16/19 05:28 Baso # 0.0 K/mm3 (0.0-0.1) 01/16/19 05:28 Seg Neutrophils % 83.3 % (40.0-70.0) H 01/16/19 05:28 Seg Neutrophils # 7.4 K/mm3 (1.8-7.7) 01/16/19 05:28 PT 19.2 Sec. (12.2-14.9) H 01/14/19 05:42 INR 1.66 (0.87-1.13) H 01/14/19 05:42 APTT 41.2 Sec. (24.2-36.6) H 01/12/19 22:50 Sodium 139 mmol/L (137-145) D 01/18/19 05:03 Potassium 3.1 mmol/L (3.6-5.0) L 01/18/19 05:03 Chloride 106.4 mmol/L (98-107) 01/18/19 05:03 Carbon Dioxide 19 mmol/L (22-30) L 01/18/19 05:03 17 mmol/L 01/18/19 05:03 BUN 8 mg/dL (9-20) L 01/18/19 05:03 0.5 mg/dL (0.8-1.5) L 01/18/19 05:03 Estimated GFR > 60 ml/min 01/18/19 05:03 16 % 01/18/19 05:03 Glucose 84 mg/dL (75-100) 01/18/19 05:03 Calcium 7.8 mg/dL (8.4-10.2) L 01/18/19 05:03 Phosphorus 2.40 mg/dL (2.5-4.5) L D 01/16/19 05:28 Magnesium 1.80 mg/dL (1.7-2.3) 01/18/19 05:03 0.60 mg/dL (0.1-1.2) 01/12/19 22:50 AST 102 units/L (5-40) H 01/12/19 22:50 ALT 23 units/L (7-56) 01/12/19 22:50 97 units/L (35-129) 01/12/19 22:50 8.1 g/dL (6.3-8.2) 01/12/19 22:50 3.0 g/dL (3.9-5) L 01/12/19 22:50 0.6 % 01/12/19 22:50 Blood Type O NEGATIVE 01/12/19 22:50 Antibody Screen Negative 01/12/19 22:50 Crossmatch See Detail 01/12/19 22:50 Active Medications - Current Medications Current Medications: Generic Name Dose Route Start Last Admin Trade Name Freq PRN Reason Stop Dose Admin Acetaminophen 650 mg 01/13/19 00:17 Tylenol PO Q4H PRN Pain MILD(1-3)/Fever >100.5/MCMILLAN Sodium Chloride 1,000 mls @ 75 mls/hr 01/14/19 08:00 01/17/19 15:08 Nacl 0.9% 1000 Ml IV 50 mls/hr DIRECT CARMEL Administration Lorazepam 2 mg 01/17/19 09:13 Ativan IV Q4H PRN Agitation Multivitamins/Minerals 1 each 01/17/19 10:00 01/17/19 10:04 Theragran-M Tab PO 1 each QDAY CARMEL Administration Nicotine 14 mg 01/17/19 14:58 01/17/19 15:05 Habitrol TD 14 mg QDAY CARMEL Administration Ondansetron HCl 4 mg 01/13/19 00:17 Zofran IV Q8H PRN Nausea And Vomiting Pantoprazole Sodium 40 mg 01/13/19 13:00 01/17/19 22:51 Protonix IV 40 mg BID CARMEL Administration Potassium Chloride 10 meq 01/17/19 10:00 01/17/19 10:04 K-Dur PO 10 meq QDAY CARMEL Administration Potassium Chloride 40 meq 01/18/19 09:09 K-Dur PO 01/18/19 09:10 ONCE ONE Potassium Phos/Sodium Phos 1 each 01/16/19 22:00 01/17/19 22:51 Phos-Nak PO 01/18/19 10:01 1 each Q12HR CARMEL Administration Sodium Chloride 10 ml 01/13/19 10:00 01/17/19 09:01 Sodium Chloride Flush Syringe 10 Ml IV Not Given BID CARMEL Sodium Chloride 10 ml 01/13/19 00:17 Sodium Chloride Flush Syringe 10 Ml IV PRN PRN LINE FLUSH Trazodone HCl 50 mg 01/17/19 22:00 01/17/19 22:51 Desyrel PO 50 mg QHS CARMEL Administration
[2019-01-18] MEDS ORDERED: HABITROL TD SCH (10:00)
[2019-01-18] MEDS: SODIUM CHLORIDE FLUSH SYRINGE 10 ML IV SCH ×2 (10:00→22:30)
[2019-01-18] MEDS ORDERED: K-DUR PO ONE (10:00)
[2019-01-18] MEDS: PROTONIX IV SCH ×2 (10:05→22:20)
[2019-01-18] MEDS: PHOS-NAK PO SCH (10:06)
[2019-01-18] MEDS: K-DUR PO SCH (10:06)
[2019-01-18] MEDS: THERAGRAN-M Tab PO SCH (10:07)
[2019-01-18 10:13] LABS: Basophils % (Manual) 0 % (0.0-1.8); Total Cells Counted 100
[2019-01-18 10:14] LABS: Hypochromasia Few; Platelet Estimate Consistent w Auto; Target Cells Few
[2019-01-18] MEDS: HABITROL TD SCH (19:00)
[2019-01-18] MEDS: DESYREL PO SCH (22:20)
[2019-01-19 08:10] LABS: Hematocrit 27.3 % (35.5-45.6); Hemoglobin 9.2 gm/dl (11.8-15.2); Mean Corpuscular HGB Conc 34 % (32-34); Mean Corpuscular Volume 86 fl (84-94); Platelet Count 116 K/mm3 (140-440); Red Blood Count 3.19 M/mm3 (3.65-5.03)
[2019-01-19 08:40] LABS: Red Cell Distribution Width 20.1 % (13.2-15.2)
[2019-01-19] MEDS ORDERED: K-DUR PO ONE ×2 (11:46→14:30)
[2019-01-19] MEDS ORDERED: MAGNESIUM SULFATE 2GM/50ML 2 GM/50 ML BAG IV ONE (11:46)
--- NOTE | 2019-01-19 11:51 | Progress Note ---
Assessment and Plan Assessment and plan: --Hypokalemia;kcl,monitor levels --Hypomagnesemia; magnesium sulfate --Lower GI bleeding: No new episodes of bleeding s/p EGD :2 large columns of esophageal varices in the distal 1/3 of the esophagus. s/p a total of 3 bands were placed with excellent results. s/p colonoscopy;Large area of nodularity, friability, ulceration, with active oozing of blood was seen in the rectum. This is a source of the GI bleeding, s/p biopsy --Acute Blood loss Anemia: s/p total 5 units PRBC transfusion Hb 4.9- 9.2 closely monitor H&H Transfuse as needed --Hyponatremia; resolved --Alcoholic liver disease/ Cirrhosis Liver: Supportive care, GI following --Coagulopathy: due to cirrhosis: Vit K as needed Monitor PT/INR --Chronic alcohol use; counseling Advised to quit alcohol intake --Alcohol withdrawal: Ativan as needed[CIWA protocol] Patient is more alert and awake Patient advised to seek alcohol detox/alcohol rehab Upon discharge --Physical therapy recommended rehabilitation/19/02 personal care --Moderate malnutrition/Hypoalbuminemia: supportive care,suppliments as needed --DVT prophylaxis:SCD Possible discharge in 1-2 days if stable Monitor closely and adjust management as needed Plan of care reviewed with the patient and his nurse History Interval history: Patient seen and examined ,medical records reviewed Patient feels better no new complaints Vital signs noted Hospitalist Physical - Constitutional Vitals: Temp Pulse Resp BP Pulse Ox 97.8 F 86 18 129/65 97 01/19/19 02:55 01/19/19 02:37 01/19/19 08:42 01/19/19 02:55 01/19/19 08:42 General appearance: Present: no acute distress, well-nourished - EENT Eyes: Present: PERRL, EOM intact - Neck Neck: Present: supple, normal ROM - Respiratory Respiratory effort: normal Respiratory: bilateral: diminished, negative: rales, rhonchi, wheezing - Cardiovascular Rhythm: regular Heart Sounds: Present: S1 & S2 - Extremities Extremities: no ischemia, No edema - Abdominal General gastrointestinal: soft, non-tender, non-distended, normal bowel sounds - Integumentary Integumentary: Present: clear, warm - Psychiatric Psychiatric: appropriate mood/affect, cooperative - Neurologic Neurologic: moves all extremities Results - Labs CBC & Chem 7: 01/19/19 06:51 01/19/19 06:51 Labs: Laboratory Last Values WBC 6.3 K/mm3 (4.5-11.0) 01/19/19 06:51 RBC 3.19 M/mm3 (3.65-5.03) L 01/19/19 06:51 Hgb 9.2 gm/dl (11.8-15.2) L 01/19/19 06:51 Hct 27.3 % (35.5-45.6) L 01/19/19 06:51 MCV 86 fl (84-94) 01/19/19 06:51 MCH 29 pg (28-32) 01/19/19 06:51 MCHC 34 % (32-34) 01/19/19 06:51 RDW 20.1 % (13.2-15.2) H 01/19/19 06:51 Plt Count 116 K/mm3 (140-440) L 01/19/19 06:51 Lymph % (Auto) 7.8 % (13.4-35.0) L 01/16/19 05:28 [place] % (Auto) Bilingual Sales Representative 01/19/19 06:51 Eos % (Auto) 1.1 % (0.0-4.3) 01/16/19 05:28 Baso % (Auto) 0.3 % (0.0-1.8) 01/16/19 05:28 Lymph # 0.7 K/mm3 (1.2-5.4) L 01/16/19 05:28 [place] # 0.7 K/mm3 (0.0-0.8) 01/16/19 05:28 Eos # 0.1 K/mm3 (0.0-0.4) 01/16/19 05:28 Baso # 0.0 K/mm3 (0.0-0.1) 01/16/19 05:28 Add Manual Diff Complete 01/18/19 05:03 Total Counted 100 01/18/19 05:03 Seg Neutrophils % 83.3 % (40.0-70.0) H 01/16/19 05:28 Seg Neuts % (Manual) 82.0 % (40.0-70.0) H 01/18/19 05:03 1.0 % 01/18/19 05:03 12.0 % (13.4-35.0) L 01/18/19 05:03 Reactive Lymphs % (Man) 1.0 % 01/18/19 05:03 3.0 % (0.0-7.3) 01/18/19 05:03 1.0 % (0.0-4.3) 01/18/19 05:03 0 % (0.0-1.8) 01/18/19 05:03 0 % 01/18/19 05:03 0 % 01/18/19 05:03 0 % 01/18/19 05:03 0 % 01/18/19 05:03 Nucleated RBC % Not Reportable 01/18/19 05:03 Seg Neutrophils # 7.4 K/mm3 (1.8-7.7) 01/16/19 05:28 Seg Neutrophils # Man 4.0 K/mm3 (1.8-7.7) 01/18/19 05:03 Band Neutrophils # 0.0 K/mm3 01/18/19 05:03 0.6 K/mm3 (1.2-5.4) L 01/18/19 05:03 Abs React Lymphs (Man) 0.0 K/mm3 01/18/19 05:03 0.1 K/mm3 (0.0-0.8) 01/18/19 05:03 0.0 K/mm3 (0.0-0.4) 01/18/19 05:03 0.0 K/mm3 (0.0-0.1) 01/18/19 05:03 0.0 K/mm3 01/18/19 05:03 0.0 K/mm3 01/18/19 05:03 0.0 K/mm3 01/18/19 05:03 Blast Cells # 0.0 K/mm3 01/18/19 05:03 WBC Morphology Not Reportable 01/18/19 05:03 Hypersegmented Neuts Not Reportable 01/18/19 05:03 Hyposegmented Neuts Not Reportable 01/18/19 05:03 Hypogranular Neuts Not Reportable 01/18/19 05:03 Not Reportable 01/18/19 05:03 Not Reportable 01/18/19 05:03 Not Reportable 01/18/19 05:03 Not Reportable 01/18/19 05:03 Not Reportable 01/18/19 05:03 Not Reportable 01/18/19 05:03 Consistent w auto 01/18/19 05:03 Not Reportable 01/18/19 05:03 Plt Clumps, EDTA Not Reportable 01/18/19 05:03 Not Reportable 01/18/19 05:03 Not Reportable 01/18/19 05:03 Not Reportable 01/18/19 05:03 Plt Morphology Comment Not Reportable 01/18/19 05:03 RBC Morphology Not Reportable 01/18/19 05:03 Dimorphic RBCs Not Reportable 01/18/19 05:03 Few 01/18/19 05:03 Few 01/18/19 05:03 Not Reportable 01/18/19 05:03 Not Reportable 01/18/19 05:03 Not Reportable 01/18/19 05:03 Not Reportable 01/18/19 05:03 Not Reportable 01/18/19 05:03 Not Reportable 01/18/19 05:03 Not Reportable 01/18/19 05:03 Few 01/18/19 05:03 Not Reportable 01/18/19 05:03 Not Reportable 01/18/19 05:03 Not Reportable 01/18/19 05:03 Not Reportable 01/18/19 05:03 Not Reportable 01/18/19 05:03 Not Reportable 01/18/19 05:03 Not Reportable 01/18/19 05:03 Not Reportable 01/18/19 05:03 Not Reportable 01/18/19 05:03 Acanthocytes (Spur) Not Reportable 01/18/19 05:03 Rouleaux Not Reportable 01/18/19 05:03 Not Reportable 01/18/19 05:03 Not Reportable 01/18/19 05:03 Not Reportable 01/18/19 05:03 Not Reportable 01/18/19 05:03 Hem Pathologist Commnt No 01/18/19 05:03 PT 19.2 Sec. (12.2-14.9) H 01/14/19 05:42 INR 1.66 (0.87-1.13) H 01/14/19 05:42 APTT 41.2 Sec. (24.2-36.6) H 01/12/19 22:50 Sodium 139 mmol/L (137-145) D 01/18/19 05:03 Potassium 3.5 mmol/L (3.6-5.0) L 01/19/19 06:51 Chloride 106.4 mmol/L (98-107) 01/18/19 05:03 Carbon Dioxide 19 mmol/L (22-30) L 01/18/19 05:03 17 mmol/L 01/18/19 05:03 BUN 8 mg/dL (9-20) L 01/18/19 05:03 0.5 mg/dL (0.8-1.5) L 01/18/19 05:03 Estimated GFR > 60 ml/min 01/18/19 05:03 16 % 01/18/19 05:03 Glucose 84 mg/dL (75-100) 01/18/19 05:03 Calcium 7.8 mg/dL (8.4-10.2) L 01/18/19 05:03 Phosphorus 2.40 mg/dL (2.5-4.5) L D 01/16/19 05:28 Magnesium 1.50 mg/dL (1.7-2.3) L 01/19/19 06:51 0.60 mg/dL (0.1-1.2) 01/12/19 22:50 AST 102 units/L (5-40) H 01/12/19 22:50 ALT 23 units/L (7-56) 01/12/19 22:50 97 units/L (35-129) 01/12/19 22:50 8.1 g/dL (6.3-8.2) 01/12/19 22:50 3.0 g/dL (3.9-5) L 01/12/19 22:50 0.6 % 01/12/19 22:50 Blood Type O NEGATIVE 01/12/19 22:50 Antibody Screen Negative 01/12/19 22:50 Crossmatch See Detail 01/12/19 22:50 Active Medications - Current Medications Current Medications: Generic Name Dose Route Start Last Admin Trade Name Freq PRN Reason Stop Dose Admin Acetaminophen 650 mg 01/13/19 00:17 Tylenol PO Q4H PRN Pain MILD(1-3)/Fever >100.5/MCMILLAN Sodium Chloride 1,000 mls @ 75 mls/hr 01/14/19 08:00 01/17/19 15:08 Nacl 0.9% 1000 Ml IV 50 mls/hr DIRECT CARMEL Administration Magnesium Sulfate 2 gm in 50 mls @ 25 mls/hr 01/19/19 11:46 Magnesium Sulfate 2gm/50ml IV 01/19/19 13:45 ONCE ONE Lorazepam 2 mg 01/17/19 09:13 Ativan IV Q4H PRN Agitation Multivitamins/Minerals 1 each 01/17/19 10:00 01/18/19 10:07 Theragran-M Tab PO 1 each QDAY CARMEL Administration Nicotine 14 mg 01/17/19 14:58 01/18/19 19:00 Habitrol TD 14 mg QDAY CARMEL Administration Ondansetron HCl 4 mg 01/13/19 00:17 Zofran IV Q8H PRN Nausea And Vomiting Pantoprazole Sodium 40 mg 01/13/19 13:00 01/18/19 22:20 Protonix IV 40 mg BID CARMEL Administration Potassium Chloride 10 meq 01/17/19 10:00 01/18/19 10:06 K-Dur PO 10 meq QDAY CARMEL Administration Potassium Chloride 20 meq 01/19/19 11:46 K-Dur PO 01/19/19 11:47 ONCE ONE Sodium Chloride 10 ml 01/13/19 10:00 01/18/19 22:30 Sodium Chloride Flush Syringe 10 Ml IV 10 ml BID CARMEL Administration Sodium Chloride 10 ml 01/13/19 00:17 Sodium Chloride Flush Syringe 10 Ml IV PRN PRN LINE FLUSH Trazodone HCl 50 mg 01/17/19 22:00 01/18/19 22:20 Desyrel PO 50 mg QHS CARMEL Administration
[2019-01-19] MEDS: PROTONIX IV SCH ×2 (11:52→22:14)
[2019-01-19] MEDS: THERAGRAN-M Tab PO SCH (11:52)
[2019-01-19] MEDS: HABITROL TD SCH (11:54)
[2019-01-19] MEDS: SODIUM CHLORIDE FLUSH SYRINGE 10 ML IV SCH ×2 (11:54→22:15)
[2019-01-19] MEDS: K-DUR PO SCH (11:57)
[2019-01-19 17:52] LABS: Anisocytosis 1+; Basophils % (Manual) 0 % (0.0-1.8); Total Cells Counted 100
[2019-01-19 18:03] LABS: Platelet Estimate Consistent w Auto
[2019-01-19] MEDS: DESYREL PO SCH (22:18)
[2019-01-20 06:03] LABS: BUN/Creatinine Ratio 16; Blood Urea Nitrogen 8 mg/dL (9-20); Calcium 8.4 mg/dL (8.4-10.2); Hemolysis Index 2
[2019-01-20 08:26] VITALS: BP 112/62
[2019-01-20] MEDS ORDERED: PROTONIX PO SCH (10:00)
[2019-01-20] MEDS: HABITROL TD SCH (10:17)
[2019-01-20] MEDS: THERAGRAN-M Tab PO SCH (10:17)
[2019-01-20] MEDS: K-DUR PO SCH (10:18)
--- NOTE | 2019-01-20 11:53 | Discharge Summary ---
Providers - Providers Date of Admission: 01/13/19 00:17 Date of discharge: 01/20/19 Attending physician: SHANIQUA MCKINNEY 01/12/19 23:49 Consult to Physician [CONS] Stat Comment: Consulting Provider: HIEU DEJESUS Physician Instructions: Reason For Exam: gi bleed 01/16/19 11:21 Physical Therapy Evaluation and Treat [CONS] Routine Comment: Reason For Exam: unsteady gait Primary care physician: IFTIKHAR ARANDA MD Hospitalization Reason for admission: Rectal Bleeding Condition: Stable Pertinent studies: s/p EGD :2 large columns of esophageal varices in the distal 1/3 of the esophagus. s/p a total of 3 bands were placed with excellent results. s/p colonoscopy;Large area of nodularity, friability, ulceration, Hospital course: 68-year-old male with hx of alcoholic cirrhosis presents to ED with complaint of rectal bleeding 3 days. Patient reports bright red blood per rectum. Denies abdominal pain, nausea, vomiting. Patient states this has happened before and he has required blood transfusions in the past. Patient reports tobacco and alcohol use. States his alcohol use is daily, usually consists of an "extra large" six-pack of beer daily. Patient was evaluated,noted to have severe anemia with Hb of 4.9gm,Received a total of 5 units PRBC evaluated by GI ,underwent EGD, s/p 3 bands applied for Varices, S/P colonoscopy and biopsy.Multiple electrolyte abnormalities corrected. Advised to quit alcohol,advised smoking cessation. Today patient is combortable,no new complaints,vital signs stable Physical exam at discharge is unremarkable., Stable at discharge Discharge Diagnosis: --Lower GI bleeding: No new episodes of bleeding s/p EGD :2 large columns of esophageal varices in the distal 1/3 of the esophagus. s/p a total of 3 bands were placed with excellent results. s/p colonoscopy;Large area of nodularity, friability, ulceration, with active oozing of blood was seen in the rectum. This is a source of the GI bleeding, s/p biopsy --Acute Blood loss Anemia: s/p total 5 units PRBC transfusion Hb 4.9- 9.2 closely monitor H&H Transfuse as needed --Hypokalemia;kcl,monitor levels --Hypomagnesemia; magnesium sulfate --Hyponatremia; resolved --Alcoholic liver disease/ Cirrhosis Liver:GI following --Coagulopathy: cirrhosis: Vit K as needed, Monitor PT/INR --Chronic alcohol use; counseling Advised to quit alcohol intake --Alcohol withdrawal: Ativan as needed[WA protocol] Patient is more alert and awake, advised to seek alcohol detox/alcohol rehab Upon discharge --Physical therapy recommended rehabilitation/19/02 personal care --Moderate malnutrition/Hypoalbuminemia: supportive care,suppliments as needed --DVT prophylaxis:SCD Possible discharge in 1-2 days if stable Monitor closely and adjust management as needed Plan of care reviewed with the patient and his nurse Disposition: DC-01 TO HOME OR SELFCARE Time spent for discharge: 32 min Core Measure Documentation - Palliative Care Palliative Care/ Comfort Measures: Not Applicable - Core Measures Any of the following diagnoses?: none Exam - Constitutional Vitals: Temp Pulse Resp BP Pulse Ox 98.3 F 84 18 112/62 99 01/20/19 07:39 01/20/19 07:39 01/20/19 07:39 01/20/19 07:39 01/20/19 07:39 General appearance: Present: no acute distress, well-nourished - EENT Eyes: Present: PERRL, EOM intact - Neck Neck: Present: supple, normal ROM - Respiratory Respiratory effort: normal Respiratory: bilateral: diminished, negative: rales, rhonchi, wheezing - Cardiovascular Rhythm: regular Heart Sounds: Present: S1 & S2 - Extremities Extremities: no ischemia, No edema - Abdominal General gastrointestinal: Present: soft, non-tender, non-distended, normal bowel sounds - Integumentary Integumentary: Present: clear, warm - Musculoskeletal Musculoskeletal: strength equal bilaterally - Psychiatric Psychiatric: appropriate mood/affect, cooperative - Neurologic Neurologic: CNII-XII intact, moves all extremities Plan Activity: advance as tolerated, fall precautions, other (Do not drive under the influence of alcohol) Diet: regular Special Instructions: smoking cessation Additional Instructions: Smoking cessation. advised to quit alcohol intake. Do not drive or operate heavy machinery under the influence of alcohol Follow up with: ROSS HERNANDEZ MD [Staff Physician] - 3-5 Days HIEU DEJESUS MD [Staff Physician] - 7 Days Forms: Accompanied Note Prescriptions: Ferrous Sulfate [Feosol 325 MG tab] 325 mg PO BID #60 tablet Folic Acid [Folvite] 1 mg PO DAILY #30 tablet Nicotine [Habitrol] 14 mg TD QDAY #30 patch Multivitamin Tab W-MINERAL [Multiple Vitamin/Mineral (Theragran M)] 1 each PO QDAY #30 tablet Famotidine [Pepcid] 20 mg PO BID #60 tablet Thiamine [Vitamin B-1] 100 mg PO QDAY #30 tablet
== END 2019-01-20 14:20 | disposition home or self-care (01) | DRG 378 ==
LOC: ED 22:13 → 4A 01-13 00:17 → 2B-ACE 01-16 17:41 → UNDODISIN 01-17 16:55
PROVIDERS: ADMIT Internal Medicine; ATTEND Internal Medicine
PROC: 30233N1 Transfusion of Nonautologous Red Blood Cells into Peripheral Vein, Percutaneous Approach (ICD-10-PCS; 2019-01-13)
PROC: 0DB98ZX Excision of Duodenum, Via Natural or Artificial Opening Endoscopic, Diagnostic (ICD-10-PCS; principal; 2019-01-14)
PROC: 0DBP8ZX Excision of Rectum, Via Natural or Artificial Opening Endoscopic, Diagnostic (ICD-10-PCS; 2019-01-15)
DX: K62.5 Hemorrhage of anus and rectum (principal); D62 Acute posthemorrhagic anemia; E87.1 Hypo-osmolality and hyponatremia; E44.0 Moderate protein-calorie malnutrition; D68.9 Coagulation defect, unspecified; I85.00 Esophageal varices without bleeding; E87.6 Hypokalemia; E83.39 Other disorders of phosphorus metabolism; K64.9 Unspecified hemorrhoids; E83.42 Hypomagnesemia; F10.10 Alcohol abuse, uncomplicated; K70.30 Alcoholic cirrhosis of liver without ascites; Z68.23 Body mass index [BMI] 23.0-23.9, adult; Z85.46 Personal history of malignant neoplasm of prostate; Z82.49 Family history of ischemic heart disease and other diseases of the circulatory system
CPT/HCPCS: 36415; 80048; 80053; 83735; 84100; 84132; 85007; 85014; 85018; 85025; 85610; 85730; 86850; 86900; 86901; 86920; 88305; 94760; G0378; C9113; J0696; J2060; J2370; J2704; J3475; J7030; J7040; P9016